=== PATIENT | female | born 1965 | race Caucasian/White ===

== ENCOUNTER → 2016-06-05 | Outpatient (CLI) | payer BC, OTHER ==
[~2016-06-05] MED LIST: B-COTAB53 PO; MULTTAB58 PO; PARO1TAB27 PO
--- NOTE | 2016-06-06 08:32 | DIAGNOSTIC IMAGING REPORT ---
MRI OF THE LUMBAR SPINE WITHOUT IV CONTRAST CLINICAL HISTORY: Left lower extremity lumbar radiculopathy. COMPARISON STUDY: Abdominal CT dated 02/25/2007. TECHNIQUE: MRI of the lumbar spine is performed utilizing various T1 and T2-weighted sequences in the axial and sagittal planes. IV contrast was not administered for this examination. The examination is degraded by spinal scoliosis. FINDINGS: Lumbar spine: Vertebral body height and alignment are maintained throughout the lumbar spine. There is moderate lumbar levoscoliosis centered at L3. No destructive bony lesion is identified. Hemangiomas are incidentally noted in the bodies of L2 and L4. The transverse and spinous processes appear intact. There is no evidence of spondylolysis. Degenerative endplate edema is noted at L1-L2 and L2-L3. Intervertebral discs: There is degenerative disc desiccation throughout the lumbar spine. There is mild loss of height at L1-L2 through L3-L4. Spinal cord: The visualized spinal cord is normal in morphology and signal intensity. The conus medullaris terminates at the level of L1. The nerve roots of the cauda equina are normal in morphology. L1-L2: There is a small posterior disc bulge eccentric to the right. This causes minimal right-sided subarticular stenosis. The central canal and neural foramina are widely patent. L2-L3: There is a broad-based posterior disc bulge with annular fissure. There is no significant acquired compromise of the central canal. There is mild bilateral subarticular stenosis, left greater than right. The disc bulge may abut the exiting left L2 nerve root. There are small facet joint effusions. L3-L4: There is minimal posterior disc bulge with annular fissure eccentric to the left. There is no significant acquired compromise of the central canal at this level. There is mild bilateral subarticular stenosis, left greater than right. This may abut the exiting left L3 nerve root. Facet arthropathy is of no consequence. The neural foramina are widely patent. A right-sided facet joint effusion is noted. L4-L5: There is a small disc bulge eccentric to left. This causes left-sided subarticular stenosis, and this may abut the exiting left L4 nerve root. The central canal and neural foramina are clear. Facet arthropathy is of no consequence. A right-sided facet joint effusion is noted. L5-S1: The central canal is widely patent. Facet arthropathy causes minimal left-sided neural foraminal stenosis. Facet joint effusions are observed. Sacrum: Visualized sacrum is normal in morphology and signal intensity. Soft tissues: There is mild fatty atrophy of the paraspinous musculature. The retroperitoneal structures are grossly normal but not well assessed. IMPRESSION: 1. There is no disc herniation or significant acquired compromise of the central canal. 2. Degenerative disc disease as above. See discussion for detailed level by level analysis. 3. No destructive bony lesion is seen. 4. There is moderate lumbar levocurvature. Dictated: 06/05/2016 3:17 PM Transcribed: 06/05/2016 3:31 PM [facility] Electronically signed by: Miguel A Schwartz M.D. 06/05/2016 3:36 PM Dictated Date/Time: 06/05/2016 3:17 PM
== END | disposition home or self-care (01) ==
LOC: C.MRI 12:08
PROVIDERS: ATTEND Physical Medicine & Rehabilitation
DX: M51.16 Intervertebral disc disorders with radiculopathy, lumbar region (principal)

== ENCOUNTER → 2016-07-25 | Day surgery (SDC) | payer BC, OTHER ==
[2016-06-28 11:03] VITALS: Ht 165.1 cm; Wt 63.6 kg
[~2016-07-25] VITALS: Ht 165.1 cm; Wt 63.6 kg
[~2016-07-25] MED LIST changes: +LIDOCAINE HCL 1% 20 ML VIAL ONE
--- NOTE | 2016-07-25 14:40 | History & Physical Bridge - [place] ---
H&P Re-Evaluation Bridge Note: I have examined the patient, reviewed the History & Physical and in the interval since the performance of the History & Physical I have noted the following changes of clinical significance: No changes noted
[2016-07-25] MEDS: BUPIVACAINE 0.25% 30 ML VIAL INJ ONE (14:59)
[2016-07-25 15:12] VITALS: TEMP 36.4
--- NOTE | 2016-07-25 15:19 | Discharge Instructions ---
Discharge Instructions Date of Service Jul 25, 2016. Visit Reason for Visit: Low Back Pain Discharge Discharge Diagnosis / Problem: low back pain Discharge Goals Goal(s): Decrease discomfort, Improve function Activity Recommendations Activity Limitations: resume your previous activity Anesthesia . Post Anesthesia Instructions: If you have had General Anesthesia or IV Sedation: * Do not drive today. * Resume driving when surgeon permits. * Do not make important decisions or sign legal documents today. * Call surgeon for: 1. Temperature elevations greater than 101 degrees F. 2. Uncontrollable pain. 3. Excessive bleeding. 4. Persistent nausea and vomiting. 5. Medication intolerance (nausea, vomiting or rash). * For nausea and vomiting use only clear liquids such as: tea, soda, bouillon until nausea subsides, then gradually increase diet as tolerated. * If you have any concerns or questions, call your surgeon's office. If physician is unavailable and it is an emergency, call 911 or go to the nearest emergency room. . Diet Recommendations Recommended Home Diet: no limitations Procedures Procedures Performed: BILATERAL L4-5, L5-S1 MEDIAL BRANCH BLOCKS Pending Studies Studies pending at discharge: no Medical Emergencies . Who to Call and When: Medical Emergencies: If at any time you feel your situation is an emergency, please call 911 immediately. . Non-Emergent Contact Non-Emergency issues call your: Specialist . . "Provider Documentation" section prepared by Jeff Rutherford. .
[2016-07-25 15:21] VITALS: BP 119/87; PULSE 75; O2SAT 99
--- NOTE | 2016-07-25 16:29 | OPERATIVE REPORT ---
DATE OF OPERATION: 07/25/2016 PREOPERATIVE DIAGNOSIS: Lumbar facet arthropathy, chronic low back pain. POSTOPERATIVE DIAGNOSIS: Same. PROCEDURE: Bilateral L4-L5, L5-S1 medial branch blocks. INDICATIONS: The patient is a 51-year-old white female who has difficulty with low back pain. Imaging reveals increased facet joint signals predominantly on the right side bilaterally at L4-L5 and L5-S1. She presents today to determine how much of the facet issues are causing her low back pain by doing a diagnostic medial branch block. PHYSICAL EXAMINATION: Pleasant female seated comfortably. She has a significant scoliotic curve, there is no focal weakness of the lower extremities, intact sensation distally and negative seated straight leg raise. CONSENT: Verbal and written consent was obtained from the patient. Risks and benefits were reviewed. Risks include but are not limited to abscess and allergic reaction. The patient wishes to proceed. DESCRIPTION OF PROCEDURE: The patient was taken back to the special procedures room of [facility]. She was maintained in a prone position. Backside was cleansed with Betadine x3. Dry sterile dressing was applied. Fluoroscope was used to identify the left L4 transverse process junction, left L5 transverse process junction and the left sacral ala. Overlying skin was anesthetized with 1.5 mL of lidocaine 1% with a 25 gauge 1.5-inch needle at each site. A 25 gauge 3.5 inch spinal needle was then placed contacting bony target at each site, then anesthetized with 1 mL of bupivacaine 0.25%. The right side was then fluoroscopically identified, specifically the right L4 transverse process junction, right L5 transverse process junction and the right sacral ala. Overlying skin was anesthetized again with 1.5 mL of lidocaine 1% with a 25 gauge 1.5-inch needle. A 25 gauge 3.5 inch spinal needle then was placed targeting each site and then was injected with 1 mL of bupivacaine 0.25% at L4, L5 and the sacral ala. She tolerated the procedure well. DISPOSITION: 1. The patient is taken out into the discharge recovery area where she will be discharged home once discharge criteria have been met. 2. Follow up in the [facility] Medicine office in 2-4 weeks. I attest to the content of the Intraoperative Record and any orders documented therein. Any exceptio ns are noted below.
== END | disposition home or self-care (01) ==
LOC: X.SURG 13:38
PROVIDERS: ATTEND Physical Medicine & Rehabilitation
DX: M46.96 Unspecified inflammatory spondylopathy, lumbar region (principal); G89.29 Other chronic pain; M54.5 Low back pain

== ENCOUNTER → 2016-09-04 | Day surgery (SDC) | payer BC, OTHER ==
[2016-08-30 10:10] VITALS: Ht 165.1 cm; Wt 63.6 kg
[~2016-09-04] VITALS: Ht 165.1 cm; Wt 63.6 kg
[~2016-09-04] MED LIST changes: +IOPAMIDOL INJ 61% 15 ML VIAL ONE; -LIDOCAINE HCL 1% 20 ML VIAL ONE; +LIDOCAINE HCL 1% MPF 5 ML VIAL ONE; +SODIUM CHLORIDE 0.9% INJ 10 ML VIAL ONE
--- NOTE | 2016-09-04 14:47 | Discharge Instructions ---
Discharge Instructions Date of Service September 04, 2016. Visit Reason for Visit: Lumbar Radiculopathy Discharge Discharge Diagnosis / Problem: left leg pain Discharge Goals Goal(s): Decrease discomfort, Improve function Activity Recommendations Activity Limitations: resume your previous activity Anesthesia . Post Anesthesia Instructions: If you have had General Anesthesia or IV Sedation: * Do not drive today. * Resume driving when surgeon permits. * Do not make important decisions or sign legal documents today. * Call surgeon for: 1. Temperature elevations greater than 101 degrees F. 2. Uncontrollable pain. 3. Excessive bleeding. 4. Persistent nausea and vomiting. 5. Medication intolerance (nausea, vomiting or rash). * For nausea and vomiting use only clear liquids such as: tea, soda, bouillon until nausea subsides, then gradually increase diet as tolerated. * If you have any concerns or questions, call your surgeon's office. If physician is unavailable and it is an emergency, call 911 or go to the nearest emergency room. . Diet Recommendations Recommended Home Diet: resume previous diet Procedures Procedures Performed: Lumbar Epidural Steroid Injection Pending Studies Studies pending at discharge: no Medical Emergencies . Who to Call and When: Medical Emergencies: If at any time you feel your situation is an emergency, please call 911 immediately. . Non-Emergent Contact Non-Emergency issues call your: Specialist . . "Provider Documentation" section prepared by Jeff Rutherford. .
[2016-09-04 14:50] VITALS: BP 125/87; PULSE 78; O2SAT 100
--- NOTE | 2016-09-04 15:12 | OPERATIVE REPORT ---
DATE OF OPERATION: 09/04/2016 PREOPERATIVE DIAGNOSIS: L5-S1 foraminal stenosis with left lower extremity radiculopathy. POSTOPERATIVE DIAGNOSIS: Same. PROCEDURE: Left paramedian L5-S1 intralaminar epidural steroid injection under fluoroscopic guidance. SURGEON: Dr. Jeff Rutherford. INDICATIONS: The patient is a 51-year-old white female who did not receive substantial relief from medial branch blocks, her pain is felt to be more radicular in nature and she presents today for an epidural injection. Imaging shows foraminal stenosis on the left side at L4-L5 causing problems with an L5 radiculopathy. PHYSICAL EXAMINATION: GENERAL: Pleasant female seated comfortably. MUSCULOSKELETAL: Lumbar paraspinal muscles were nontender. She had normal motor and sensory examination of the lower extremities. Negative seated straight leg raises. CONSENT: Verbal and written consent was obtained from the patient. Risks and benefits were reviewed. Risks include but are not limited to epidural abscess, epidural hematoma, allergic reaction, dural puncture. The patient wishes to proceed. PROCEDURE: The patient was taken back to the special procedures room of [facility]. She was maintained in a prone position. Backside was cleansed with Betadine x3 and a dry sterile dressing was applied. Fluoroscope was used to identify the L5-S1 intralaminar space. Overlying skin on the left side was anesthetized with 4 mL of lidocaine 1% with a 25 gauge 1.5-inch needle with lidocaine 1% 4 mL. Then a 22 gauge 3-1/2 inch Tuohy needle was placed down towards the intralaminar space. It was advanced under lateral fluoroscopic guidance and loss of resistance was noted at a depth of 6 cm. Isovue-300 contrast 1 mL was injected in which demonstrated epidural uptake pattern which was confirmed with both AP and lateral views. She then underwent injection after negative aspiration of 40 mg of Depo-Medrol and 4 mL of preservative free sodium chloride. Injection was well tolerated and reproduced a familiar transient radicular sensation down the leg. DISPOSITION: 1. The patient is taken out into the discharge recovery area where she will be discharged home once discharge criteria have been met. 2. Follow up in the [facility] Sports Medicine office in 2-4 weeks. I attest to the content of the Intraoperative Record and any orders documented therein. Any exceptio ns are noted below.
== END | disposition home or self-care (01) ==
LOC: X.SURG 13:16
PROVIDERS: ATTEND Physical Medicine & Rehabilitation
DX: M48.07 Spinal stenosis, lumbosacral region (principal); M54.16 Radiculopathy, lumbar region

== ENCOUNTER → 2016-10-19 | Outpatient (CLI) | payer BC, OTHER ==
[~2016-10-19] MED LIST changes: -IOPAMIDOL INJ 61% 15 ML VIAL ONE; -LIDOCAINE HCL 1% MPF 5 ML VIAL ONE; -SODIUM CHLORIDE 0.9% INJ 10 ML VIAL ONE
--- NOTE | 2016-10-19 11:34 | DIAGNOSTIC IMAGING REPORT ---
CERVICAL WITHOUT CONTRAST CLINICAL HISTORY: 51-year-old female with history of scoliosis, concern for Chiari malformation, neck and lower back pain with left leg numbness for 1 1/2 years. TECHNIQUE: Multiplanar, multisequence MRI of the cervical spine was performed without the use of contrast. IV contrast: None. COMPARISON: None. FINDINGS: Normal cervical lordosis. Vertebral body heights, bone marrow signal intensity, and alignment maintained. Mild intervertebral disc desiccation in the upper cervical region, where there are small disc osteophyte complexes at C3-4 and C4-5. These do not result in significant effacement of the thecal sac. Asymmetric left mild facet arthropathy in the mid cervical spine. C2-3: Normal. C3-4: Uncovertebral hypertrophy/disc osteophyte complex results in mild bilateral neural foraminal narrowing. C4-5: Left facet arthropathy and uncovertebral hypertrophy/disc osteophyte complex result in mild left neural foraminal narrowing. C5-6: Normal. C6-7: Normal. C7-T1: Normal. Spinal cord maintains normal morphology and signal intensity. Normal craniocervical junction. Paraspinal soft tissues within normal limits. IMPRESSION: 1. Mild degenerative changes at C3-4 and C4-5 with mild neural foraminal narrowing as detailed above. No spinal canal stenosis. 2. No evidence of Chiari malformation. Electronically signed by: Trent Huerta M.D. 10/19/2016 11:32 AM Dictated Date/Time: 10/19/2016 11:22 AM
--- NOTE | 2016-10-19 12:34 | DIAGNOSTIC IMAGING REPORT ---
THORACIC SPINE WITHOUT CLINICAL HISTORY: 51 years-old Female presenting with SCOLIOSIS, rule out Chiari malformation, neck and lower back pain with left leg numbness for one and a half years. TECHNIQUE: Multisequence, multiplanar MR imaging of the thoracic spine was performed without the use of intravenous contrast. IV contrast: None. COMPARISON: Correlation made to CT of the thorax from 01/25/2010. FINDINGS: Thoracic vertebral bodies maintain normal height and bone marrow signal intensity. Scoliotic curvature of the thoracolumbar spine. Otherwise alignment is preserved. No acute osseous injury or subluxation. No significant degenerative change. No spinal canal or neural foraminal narrowing. Thoracic spinal cord maintains normal signal intensity and morphology. The spinal cord ends in good position at L1. No evidence of a syrinx. Paraspinal soft tissues normal. IMPRESSION: 1. Scoliotic curvature of the thoracic spine. No other significant abnormality. Electronically signed by: Trent Huerta M.D. 10/19/2016 12:33 PM Dictated Date/Time: 10/19/2016 12:28 PM
== END | disposition home or self-care (01) ==
LOC: C.MRI 09:33
PROVIDERS: ATTEND Neurological Surgery
DX: M41.129 Adolescent idiopathic scoliosis, site unspecified (principal)

== ENCOUNTER → 2016-12-19 | Day surgery (SDC) | payer BC, OTHER ==
[2016-11-15 10:19] VITALS: Ht 165.1 cm; Wt 63.6 kg
[~2016-12-19] VITALS: Ht 165.1 cm; Wt 63.6 kg
[~2016-12-19] MED LIST changes: +IOPAMIDOL INJ 61% 15 ML VIAL ONE; +LIDOCAINE HCL 1% MPF 5 ML VIAL ONE; +SODIUM CHLORIDE 0.9% INJ 10 ML VIAL ONE
[2016-12-19 14:23] VITALS: TEMP 36.6
[2016-12-19 15:15] VITALS: BP 118/68; PULSE 77; O2SAT 98
--- NOTE | 2016-12-19 15:19 | Discharge Instructions ---
Discharge Instructions Date of Service Dec 19, 2016. Visit Reason for Visit: Lumbar Radiculopathy Discharge Discharge Diagnosis / Problem: left leg pain Discharge Goals Goal(s): Decrease discomfort, Improve function Activity Recommendations Activity Limitations: resume your previous activity Anesthesia . Post Anesthesia Instructions: If you have had General Anesthesia or IV Sedation: * Do not drive today. * Resume driving when surgeon permits. * Do not make important decisions or sign legal documents today. * Call surgeon for: 1. Temperature elevations greater than 101 degrees F. 2. Uncontrollable pain. 3. Excessive bleeding. 4. Persistent nausea and vomiting. 5. Medication intolerance (nausea, vomiting or rash). * For nausea and vomiting use only clear liquids such as: tea, soda, bouillon until nausea subsides, then gradually increase diet as tolerated. * If you have any concerns or questions, call your surgeon's office. If physician is unavailable and it is an emergency, call 911 or go to the nearest emergency room. . Diet Recommendations Recommended Home Diet: resume previous diet Procedures Procedures Performed: Lumbar Epidural Steroid Injection Pending Studies Studies pending at discharge: no Medical Emergencies . Who to Call and When: Medical Emergencies: If at any time you feel your situation is an emergency, please call 911 immediately. . Non-Emergent Contact Non-Emergency issues call your: Specialist . . "Provider Documentation" section prepared by Jeff Rutherford. .
--- NOTE | 2016-12-19 15:38 | OPERATIVE REPORT ---
DATE OF OPERATION: 12/19/2016 PREOPERATIVE DIAGNOSIS: Lumbar synovial cyst, L5-S1 with a left S1 radiculopathy. POSTOPERATIVE DIAGNOSIS: Same. PROCEDURE: Left paramedian L5-S1 intralaminar epidural steroid injection under fluoroscopic guidance. INDICATIONS: The patient is a 51-year-old white female, who presents today for an epidural injection. She has had some relief with the epidurals in the past that helped with her radicular pain. Although, the relief has been transient, but it did last for a number of weeks to months. She presents today as the pain has escalated and she is planning on surgery, but wanted to address and get the pain under a little better control prior to any potential surgery that may occur in the coming months. PHYSICAL EXAMINATION: Pleasant female seated comfortably in no apparent distress. She has point tenderness to palpation of the facet area, worse with extension. She has normal lower extremity strength. Negative seated straight leg raises. CONSENT: Written and verbal consent were obtained from the patient. Risks and benefits were reviewed. Risks include, but are not limited to epidural abscess, epidural hematoma, allergic reaction, and dural puncture. The patient wishes to proceed. DESCRIPTION OF PROCEDURE: The patient was taken back to the special procedures room of [facility]. She was maintained in a prone position. Backside was cleansed with Betadine x3 and a dry sterile dressing was applied. Fluoroscope was used to identify the L5-S1 intralaminar space. Overlying skin on the left side was anesthetized with 4 mL of lidocaine 1% with a 25-gauge 1-1/2 inch needle. A 22-gauge 3-1/2 inch Tuohy needle was then directed down towards the intralaminar space. It was advanced under lateral fluoroscopic guidance. Loss of resistance was noted at a depth of 8 cm. Isovue-300 contrast 1 mL was injected in, which demonstrated epidural uptake pattern which was confirmed with both AP and lateral views. She then underwent injection after negative aspiration of 40 mg of Depo-Medrol and 4 mL of preservative free sodium chloride. Injection was well tolerated and reproduced transient radicular sensation down the left leg. DISPOSITION: 1. The patient was taken out into the discharge recovery area, where she will be discharged home once discharge criteria have been met. 2. Follow up in the [facility] office in 2-4 weeks. I attest to the content of the Intraoperative Record and any orders documented therein. Any exception s are noted below.
== END | disposition home or self-care (01) ==
LOC: X.SURG 14:20
PROVIDERS: ATTEND Physical Medicine & Rehabilitation
DX: M48.06 Spinal stenosis, lumbar region (principal); M54.16 Radiculopathy, lumbar region; M41.9 Scoliosis, unspecified; M71.38 Other bursal cyst, other site

== ENCOUNTER 2020-10-13 11:33 | Inpatient (IN) ==
--- NOTE | 2020-10-13 12:07 | Emergency Department Note ---
Impression & Plan Atypical chest pain, Abnormal ECG ED Provider Note NAME: GILA LANCASTER AGE: 55 SEX: F : 1965 ARRIVES VIA: Ambulance INFORMANT: patient, ED PROVIDER(S): Arsen Ledesma MD Chief Complaint: Chest pain HPI: Patient does present with concern for chest pain. The patient does describe it as left-sided and pressure-like. The patient states it is improved compared to prior. The patient did receive aspirin in route. The patient states her pain began around 930 this morning. Patient did have radiation to the arm neck and jaw. The patient was not exerting herself at the time and is unable to state whether or not it was exertional in nature. The patient is a family history of heart attack in her brother prior to the age of 60. The patient denies any heart or lung history. The patient is a non-smoker. Patient does feel some associated palpitations. Patient states that her symptoms have improved since then with only 1 out of 10 achiness in the left chest. Patient was recently seen for similar symptoms and did have a negative CTA of the chest per the patient. Patient denies any lower extremity swelling cough fever chills. ROS: See HPI for pertinent positives and negatives. A total of 10 systems were reviewed and otherwise negative. Past medical history: See below Surgical history: See below Social history: See below Physical Exam: GENERAL: Well appearing, well nourished, NAD, non-toxic. EYE EXAM: Normal conjunctiva. PERRL, no anisocoria and EOM's grossly intact w/o pain. NECK: Supple, no nuchal rigidity, no adenopathy, non-tender. No signs of meningismus. LUNGS: Clear to auscultation. Normal chest wall mechanics. HEART: NSR, no MRG. ABDOMEN: Abdomen soft, non-tender, normo-active bowel sounds, no masses, no rebound or guarding. BACK: No CVA TTP. SKIN: No rashes and no bruising. UPPER EXTREMITIES: Upper extremities are grossly normal. LOWER EXTREMITIES: Grossly normal, no edema. Negative Homans' sign bilaterally. NEURO EXAM: A&O x3, cranial nerves II-XII grossly intact, normal speech, moves all 4 extremities on command w/o issue. Differential diagnoses: Cardiac ischemia, aortic dissection, pulmonary embolism, pneumothorax, pneumonia, pericarditis, myocarditis, esophageal rupture, GERD, cholecystitis, pancreatitis, musculoskeletal, as well as other pathologies. Course: Patient was seen and evaluated the bedside. Full history physical exam was performed. EKG interpreted by me Sinus tachycardia, rate 103, normal intervals, normal axis, T WI in V3 and V4 with T wave flattening in the lateral leads. Flattening in T WI V4 appear change from previous EKG October 06, 2020. Imaging Studies: See below Cardiac monitoring: An order was placed for continuous cardiac monitoring. The monitor shows a rate of 95 with sinus rhythm. MDM: Patient was seen due to concern for chest pain. Blood work was obtained. Patient does have slight EKG changes. The patient only had 1 out of 10 chest pain at the time of her initial history and physical exam. Patient has a normal white count H&H and platelet count. Kidney function is unremarkable. Troponin not set up. After further discussion I did speak with the on-call police academy instructor who was unable to schedule a stress test this afternoon from the emergency department. Given this and the patient's atypical chest pain that I believe with a moderate risk heart score I did speak with Laura menard PA-C and the patient was admitted by Dr. Causey. The patient did receive nitro. Past Med/Surg History Medical History Anxiety Chronic back pain GERD (gastroesophageal reflux disease) MEDS PRN Migraine hx Mitral valve prolapse NO ECHO FOR AT LEAST TEN YRS. NO MURMUR ON EXAM AT PAT. Nausea and vomiting after administration of anesthetic agent just nausea Osteoarthritis Pap smear abnormality of cervix Right hip pain Surgical History H/O colposcopy with cervical biopsy History of appendectomy History of back surgery LUMBAR- DRILLED OUT NERVES UNSURE OF LEVELS History of breast biopsy years ago History of colonoscopy History of endometrial ablation 03/19/2019-D&C Hysteroscopy w/endo ablation History of esophagogastroduodenoscopy (EGD) History of tooth extraction Hx of elbow surgery right Family History Mother Arthritis Father Hypertension Grandmother (Maternal) Breast cancer Stroke Heart disease Grandmother (Paternal) Breast cancer Hypertension Grandfather (Maternal) Stroke Ulcerative colitis Hypertension Aunt Aneurysm Denies family history of Ovarian cancer Colorectal cancer Social History Smoking Status: Never smoker Second Hand Exposure: No; Hx Alcohol Use: Yes Alcohol type: beer, wine and hard liquor Hx Substance Use: No Preferred Language: German Communication Ability: Effective 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 Beliefs That Will Affect Care: None Current Living Situation: Spouse Other Information That Helps Us Care for You: No Feels Safe at Home: Yes Safety Concerns: Feels Safe At This Time Assistive Devices: None Allergies Allergies Allergy/AdvReac Type Severity Reaction Status Date / Time Sulfa (Sulfonamide Allergy Intermediate nausea, Verified 10/13/20 14:08 Antibiotics) lethargy Nitrofuran Analogues Allergy Mild nausea, Verified 10/13/20 14:08 vomiting, neuro complications Home Meds Home Medications Medication Instructions Recorded Confirmed B Complex Plus Vitamin C 1 cap PO HS 12/29/18 10/13/20 magnesium 30 mg PO HS 12/29/18 10/13/20 multivitamin 1 tab PO HS 12/29/18 10/13/20 paroxetine HCl [Paxil] 20 mg PO PM 12/29/18 10/13/20 meclizine 12.5 mg PO UD PRN 10/06/20 10/13/20 omeprazole 40 mg PO BID PRN 10/06/20 10/13/20 ondansetron HCl 4 mg PO Q6 PRN 10/06/20 10/13/20 Results & Data (ED) Vital Signs Vital Signs - 24 hr 10/13/20 11:37 10/13/20 11:38 10/13/20 12:00 Temperature 37.1 C Temperature Source Oral Pulse Rate 99 H 98 H 89 Pulse Rate from SpO2 Sensor 99 H 91 H Pulse Rhythm Regular Pulse Strength Normal Respiratory Rate 22 20 16 Respiratory Effort / Characteristics Non-Labored Spontaneous Respiratory Depth Normal Respiratory Pattern Regular Blood Pressure 133/82 133/82 126/93 Blood Pressure Mean 99 99 104 Blood Pressure Position Sitting Pulse Oximetry 99 99 97 Oxygen Delivery Method Room Air Room Air Sepsis Recent Fever Within 48 Hours No Sepsis New/Unexplained Change in Mental Status No Sepsis Action Taken by Nursing No Action Required 10/13/20 13:03 10/13/20 13:10 10/13/20 13:20 Temperature Temperature Source Pulse Rate 82 85 89 Pulse Rate from SpO2 Sensor 82 86 89 Pulse Rhythm Pulse Strength Respiratory Rate 17 15 15 Respiratory Effort / Characteristics Respiratory Depth Respiratory Pattern Blood Pressure Blood Pressure Mean Blood Pressure Position Pulse Oximetry 98 98 98 Oxygen Delivery Method Sepsis Recent Fever Within 48 Hours Sepsis New/Unexplained Change in Mental Status Sepsis Action Taken by Nursing 10/13/20 13:30 10/13/20 13:40 10/13/20 13:50 Temperature Temperature Source Pulse Rate 81 88 92 H Pulse Rate from SpO2 Sensor 82 88 92 H Pulse Rhythm Pulse Strength Respiratory Rate 12 15 16 Respiratory Effort / Characteristics Respiratory Depth Respiratory Pattern Blood Pressure Blood Pressure Mean Blood Pressure Position Pulse Oximetry 98 98 99 Oxygen Delivery Method Sepsis Recent Fever Within 48 Hours Sepsis New/Unexplained Change in Mental Status Sepsis Action Taken by Nursing 10/13/20 14:00 10/13/20 14:10 10/13/20 14:20 Temperature Temperature Source Pulse Rate 89 83 85 Pulse Rate from SpO2 Sensor 94 H 83 86 Pulse Rhythm Pulse Strength Respiratory Rate 15 16 18 Respiratory Effort / Characteristics Respiratory Depth Respiratory Pattern Blood Pressure Blood Pressure Mean Blood Pressure Position Pulse Oximetry 99 99 97 Oxygen Delivery Method Sepsis Recent Fever Within 48 Hours Sepsis New/Unexplained Change in Mental Status Sepsis Action Taken by Nursing 10/13/20 14:30 Temperature Temperature Source Pulse Rate 105 H Pulse Rate from SpO2 Sensor 106 H Pulse Rhythm Pulse Strength Respiratory Rate 23 Respiratory Effort / Characteristics Respiratory Depth Respiratory Pattern Blood Pressure Blood Pressure Mean Blood Pressure Position Pulse Oximetry 99 Oxygen Delivery Method Sepsis Recent Fever Within 48 Hours Sepsis New/Unexplained Change in Mental Status Sepsis Action Taken by [facility] Medications Current Medication List: was personally reviewed by me Laboratory Data Attestation: I reviewed the patient's lab results. Result diagrams: 10/13/20 Unknown 10/13/20 Unknown Lab Results 10/13/20 10/13/20 10/13/20 Range/Units 12:45 14:23 14:23 APTT 21.9 (21.0-31.0) Seconds PTT Ratio 0.8 COVID-19 Eval Order Covid19 at [facility] SARS-CoV-2 (PCR) NEGATIVE (Negative) Administered Medications Discontinued Medications Acetaminophen (Acetaminophen 500 Mg Tab) 1,000 mg PO NOW STA Stop: 10/13/20 14:25 Last Admin: 10/13/20 14:30 Dose: 1,000 mg Documented by: [id number] Sodium Chloride (Nss) 500 mls @ 999 mls/hr IV .Q31M STA Stop: 10/13/20 12:46 Last Infusion: 10/13/20 13:10 Dose: 0 mls/hr Documented by: [id number] Admin: 10/13/20 12:31 Dose: 999 mls/hr Documented by: [id number] Nitroglycerin (Nitroglycerin 2% Ointment 30gm Tube) 0.5 inch EXT NOW STA Stop: 10/13/20 14:09 Last Admin: 10/13/20 14:27 Dose: 0.5 inch Documented by: [id number] Imaging Data Radiologist's Impression: Chest X-Ray 10/13/20 12:16 XR chest 1V portable HISTORY: 55 years-old Female Chest Pain acute atypical chest pain COMPARISON: Chest radiograph and CTA chest 10/06/2020 TECHNIQUE: AP view of the chest FINDINGS: Cardiac mediastinal and hilar silhouettes are within normal limits. No pneumothorax, pleural effusion, airspace consolidation or overt pulmonary edema. Lumbar levoscoliosis. Bones appear grossly intact. IMPRESSION: No acute process. ACT 112: Negative or not required by law. The above report was generated using voice recognition software. It may contain grammatical, syntax or spelling errors. Electronically signed by: Eren Alonzo M.D. 10/13/2020 12:57 PM Discharge Plan Visit Data Chief Complaint: Chest Pain Stated Complaint: CHEST PAIN, SOB ED Provider: Arsen Ledesma Discharge Problem: Atypical chest pain, Abnormal ECG Patient Disposition: Admitted As Inpatient Discharge Instructions Interventions: ED Discharge Assessment Last Done: 10/13/20 16:53
[2020-10-13] MEDS ORDERED: SODIUM CHLORIDE 0.9% 500 ML IV STA (12:16)
[2020-10-13 12:49] LABS: Basophils # (auto) 0.01 K/uL (0-0.2); Basophils % (auto) 0.2 %; Eosinophils % (auto) 1.6 %; Hematocrit (blood only) 39.5 % (37-47); Hemoglobin 13.3 g/dL (12.0-16.0); Immature Granulocytes # (auto) 0.01 K/uL (0.00-0.02); Immature Granulocytes % (auto) 0.2 %; Lymphocytes % (auto) 21.3 %; Mean Corpuscular Hemoglobin 31.4 pg (25-34); Mean Corpuscular Hgb Conc 33.7 g/dL (32-36); Mean Corpuscular Volume 93.2 fL (80-100); Mean Platelet Volume 10.3 fL (7.4-10.4); Monocytes # (auto) 0.46 K/uL (0.11-0.59); Monocytes % (auto) 7.5 %; Neutrophils # (auto) 4.22 K/uL (1.4-6.5); Neutrophils % (auto) 69.2 %; Platelet Count 242 K/uL (130-400); RDW Coefficient of Variation 13.4 % (11.5-14.5); RDW Standard Deviation 45.8 fL (36.4-46.3); Red Blood Count 4.24 M/uL (4.2-5.4)
--- NOTE | 2020-10-13 12:59 | XRay Report ---
XR chest 1V portable HISTORY: 55 years-old Female Chest Pain acute atypical chest pain COMPARISON: Chest radiograph and CTA chest 10/06/2020 TECHNIQUE: AP view of the chest FINDINGS: Cardiac mediastinal and hilar silhouettes are within normal limits. No pneumothorax, pleural effusion , airspace consolidation or overt pulmonary edema. Lumbar levoscoliosis. Bones appear grossly intact. IMPRESSION: No acute process. ACT 112: Negative or not required by law. The above report was generated using voice recognition software. It may contain grammatical, syntax o r spelling errors. Electronically signed by: Eren Alonzo M.D. 10/13/2020 12:57 PM
[2020-10-13 13:09] LABS: Alanine Aminotransferase 19 U/L (12-78); Albumin Level 3.7 gm/dl (3.4-5.0); Aspartate Aminotransferase 15 U/L (15-37); BUN Creatinine Ratio 20.4 (10-20); Blood Urea Nitrogen 13 mg/dl (7-18); Carbon Dioxide 28 mmol/L (21-32); Chloride 111 mmol/L (98-107); Creatinine Clr Calc Pharmacy 100.5 ml/min; Est GFR (African American) 118.1 ml/min; Est GFR (Non-African American) 101.9 ml/min; Glucose 96 mg/dl (70-99); Lipase 193 U/L (73-393); Potassium 3.6 mmol/L (3.5-5.1); Sodium 140 mmol/L (136-145)
[2020-10-13 13:12] LABS: Partial Thromboplastin Ratio 0.8; Partial Thromboplastin Time 21.9 Seconds (21.0-31.0)
[2020-10-13 13:14] LABS: Albumin Globulin Ratio 0.9 (0.9-2); Alkaline Phosphatase 66 U/L (45-117); Bilirubin,Total 0.3 mg/dl (0.2-1); Globulin 3.9 gm/dl (2.5-4.0); Total Protein 7.6 gm/dl (6.4-8.2); Troponin I < 0.015 ng/ml (0-0.045)
[2020-10-13] MEDS ORDERED: NITROGLYCERIN 2% OINTMENT 30GM TUBE EXT STA (14:08)
--- NOTE | 2020-10-13 14:20 | History & Physical Report ---
Date of Service October 13, 2020 Assessment & Plan (1) Frequent PVCs: (2) Palpitation: (3) Chest pain: - Admit to tele for observation for r/o - Trend cardiac biomarkers, initial set was negative, next set at 1999, check magnesium at that time - If negative enzymes can consider a stress test tomorrow morning. Will make npo after midnight in case can do stress test in the am - Consult cardiology - appreciate recs, - EKG reviewed as above showing T wave inversions in V4-V6, - Daily EKGs - Check 2 D echo - PT/OT consulted (4) Migraine: - Hx of such, controlled (5) GERD (gastroesophageal reflux disease): -Patient is not on a PPI or H2 lauren (6) Chronic back pain: -History of such uses Tylenol, ibuprofen as needed (7) Anxiety: -History of such, well maintained on Paxil 20 mg daily, continue DVt ppx: - teds, scds CODE: Full code Dispo: From home, likely to remain in the hospital x 1-2 days History of Present Illness Primary Care Provider: Jarek Madrigal DO This is a 55-year-old female with PMHx of migraine, GERD, chronic back pain, anxiety, osteoarthritis, s/p hysterectomy 08/22/2020, presents with acute onset of chest pain. Patient is here with her who supports the history. She reports that she was in the ER approximately 1 week ago with similar complaints, at that time negative troponins, no EKG changes, chest pain relieved and was sent home. Patient represents today as this morning while she was sitting at her desk working she had acute onset of chest pressure, substernal and left-sided pain which radiated down her left arm and up into the left side of her jaw. She had associated shortness of breath and diaphoresis at that time. This lasted several minutes and then subsided. She continued to have palpitations and felt dizzy throughout the morning and called her PCP who is did schedule her for an appointment tomorrow morning. Due to chest pressure waxing and waning she presented to the ER. Currently she rates her pain as a 3/10, and had Nitropaste 1/2 inch placed prior to my visit. She denies any stressful social or family events that would have prompted an anxiety attack or panic attack that may have caused her above symptoms. Social history: Patient denies any smoking history. She drinks 1 alcoholic beverage daily. Pt walks approximately 1 mile per day since having a hysterectomy surgery performed 6 weeks ago. Prior to her surgery she was walking approximately 3 miles daily for exercise. Since having the surgery for heavy irregular menses, she denies vaginal bleeding, dizziness, fatigue, shortness of breath or other complaints endorsed from blood loss. Family history: Brother-age 53, CAD s/p cardiac stents in his mid 40s Maternal grandmother - of stroke in 60s Maternal grandfather - of stroke in 60s Allergies Allergy/AdvReac Type Severity Reaction Status Date / Time Sulfa (Sulfonamide Allergy Intermediate nausea, Verified 10/13/20 14:08 Antibiotics) lethargy Nitrofuran Analogues Allergy Mild nausea, Verified 10/13/20 14:08 vomiting, neuro complications Home Medications Medication Instructions Recorded Confirmed Type B Complex Plus Vitamin C 1 cap PO HS 12/29/18 10/13/20 History magnesium 30 mg PO HS 12/29/18 10/13/20 History multivitamin 1 tab PO HS 12/29/18 10/13/20 History paroxetine HCl [Paxil] 20 mg PO PM 12/29/18 10/13/20 History meclizine 12.5 mg PO UD PRN 10/06/20 10/13/20 History omeprazole 40 mg PO BID PRN 10/06/20 10/13/20 History ondansetron HCl 4 mg PO Q6 PRN 10/06/20 10/13/20 History Past Med/Surg History Medical History Anxiety Chronic back pain GERD (gastroesophageal reflux disease) MEDS PRN Migraine hx Mitral valve prolapse NO ECHO FOR AT LEAST TEN YRS. NO MURMUR ON EXAM AT PAT. Nausea and vomiting after administration of anesthetic agent just nausea Osteoarthritis Pap smear abnormality of cervix Right hip pain Surgical History H/O colposcopy with cervical biopsy History of appendectomy History of back surgery LUMBAR- DRILLED OUT NERVES UNSURE OF LEVELS History of breast biopsy years ago History of colonoscopy History of endometrial ablation 03/19/2019-D&C Hysteroscopy w/endo ablation History of esophagogastroduodenoscopy (EGD) History of tooth extraction Hx of elbow surgery right Family History Mother Arthritis Father Hypertension Grandmother (Maternal) Breast cancer Stroke Heart disease Grandmother (Paternal) Breast cancer Hypertension Grandfather (Maternal) Stroke Ulcerative colitis Hypertension Aunt Aneurysm Denies family history of Ovarian cancer Colorectal cancer Social History Smoking Status: Never smoker Second Hand Exposure: No; Hx Alcohol Use: Yes Alcohol type: beer, wine and hard liquor Hx Substance Use: No Preferred Language: Palestinian Communication Ability: Effective Mobile Phlebotomist Required: No Beliefs That Will Affect Care: None Current Living Situation: Spouse Other Information That Helps Us Care for You: No Feels Safe at Home: Yes Safety Concerns: Feels Safe At This Time Assistive Devices: None Review of Systems Review of Systems: Constitutional: No fever, sweats or chills Eyes: No diplopia, no worsening or blurred vision ENT: normal hearing, no trouble swallowing Respiratory: No cough, sputum, dyspnea at rest or on exertion Cardiovascular: As per HPI Abdomen: No pain, nausea, vomiting, diarrhea or constipation Musculoskeletal: No joint pain, calf pain, swelling Neurologic: No weakness, numbness/tingling, or balance problems Psychiatric: No anxiety or depression Skin: No rash or itch Physical Exam Physical Exam: General: awake, alert, no apparent distress Head: Normocephalic, atraumatic ENT: PERRL, EOMI, no pharyngeal exudate, mucous membranes moist Chest: Clear to auscultation, on room air, no adventitious breath sounds Cardiac: Regular rhythm, few extra beats, tachycardic with heart rate in the mid 90s, no murmur, no JVD, normal peripheral pulses, good capillary refill Abdominal: NABS x 4 quadrants, soft, nondistended, nontender to palpation, no rebound or guarding Extremities: Normal inspection, no peripheral edema or erythema, calfs nontender to palpation Psych: Normal mood and affect Neuro: AAO x 3, strength intact bilaterally and rated 5/5, no motor deficits, speech is clear, no peripheral sensory deficits Results & Data Results & Data ([facility]) Vital Signs (Past 12 Hours) Vital Signs Temp Pulse Resp BP Pulse Ox 10/13/20 13:40 88 15 98 10/13/20 13:30 81 12 98 10/13/20 13:20 89 15 98 10/13/20 13:10 85 15 98 10/13/20 13:03 82 17 98 10/13/20 12:00 89 16 126/93 97 10/13/20 11:38 98 H 20 133/82 99 10/13/20 11:37 37.1 C 99 H 22 133/82 99 Diagnostic Findings Chest X-Ray 10/13/20 12:16 XR chest 1V portable HISTORY: 55 years-old Female Chest Pain acute atypical chest pain COMPARISON: Chest radiograph and CTA chest 10/06/2020 TECHNIQUE: AP view of the chest FINDINGS: Cardiac mediastinal and hilar silhouettes are within normal limits. No pneumothorax, pleural effusion, airspace consolidation or overt pulmonary edema. Lumbar levoscoliosis. Bones appear grossly intact. IMPRESSION: No acute process. ACT 112: Negative or not required by law. The above report was generated using voice recognition software. It may contain grammatical, syntax or spelling errors. Electronically signed by: Eren Alonzo M.D. 10/13/2020 12:57 PM ECG Additional Comments: 13-OCT-2020 11:40:55 [facility]-EDSTAT ROUTINE RETRIEVAL Sinus tachycardia Possible Left atrial enlargement Nonspecific T wave abnormality Abnormal ECG When compared with ECG of 06-OCT-2020 12:18, Premature ventricular complexes are no longer Present Nonspecific T wave abnormality now evident in Inferior leads Nonspecific T wave abnormality now evident in Lateral leads 25mm/s 10mm/mV 150Hz 9.0.9 12SL 241 DREA: 11 Unconfirmed Vent. rate 103 BPM LA interval 138 ms QRS duration 84 ms QT/QTc 318/416 ms Code Status & VTE Plan Code Status Full code-discussed with patient at bedside Supervising Physician Co-Signing Physician Notes Patient is a 55-year-old female with history of GERD, PVCs, migraine and other medical problems presents with history of gradually worsening left-sided, retrosternal chest pain associated with palpitations, dyspnea, diaphoresis, nausea, radiates to left upper extremity, left side of the jaw, with no aggravating or relieving factors since 1 week duration. Patient admits to have panic attacks many years ago but currently denies issues. She recently had hysterectomy for menorrhagia and did well postoperatively. Chest pain improved with nitroglycerin given while in ED. Please review HPI for complete details of presentation. Initial troponins are negative. Chest x-ray not contributory. EKG showed nonspecific T wave changes in inferior, lateral leads. Patient is a strong family history of coronary artery disease (brother diagnosed to have CAD in his 40s). On exam patient is moderately built and nourished, no apparent distress, normocephalic atraumatic, EOMI, PERRL, normal breath sounds, clear to auscultation, S1-S2, no murmur, no pedal edema, abdomen soft, nontender, normal bowel sounds, alert, awake, oriented, grossly no focal deficits. Patient is admitted for management of chest pain rule out ACS. Start on aspirin 81 mg daily. Check resting echo. Trend cardiac enzymes. Consult cardiology. We will keep her n.p.o. after midnight. Repeat EKG in the morning. Check lipid panel, TSH. Monitor on telemetry for PVCs. I personally reviewed the record. Patient is interviewed and examined at bedside. Patient's care is coordinated with Mary Oliva PA-C. Please refer to the documentation above for details of patient's presentation and for discussion of other issues. (1) Chest pain Chest pain type: unspecified Qualified Code(s): R07.9 - Chest pain, unspecified
[2020-10-13] MEDS ORDERED: ACETAMINOPHEN 500 MG TAB PO STA (14:24)
[2020-10-13] MEDS ORDERED: POTASSIUM CHLORIDE CRTAB 20 MEQ TABCR PO ONE (16:54)
[2020-10-13] MEDS ORDERED: ONDANSETRON INJ 2 MG/ML 2 ML VIAL IV PRN (16:54)
[2020-10-13] MEDS ORDERED: NITROGLYCERIN SL 0.4 MG/TAB TAB SL PRN (16:54)
[2020-10-13] MEDS ORDERED: PANTOprazole 40 MG TAB PO PRN (17:04)
[2020-10-13 21:01] LABS: Magnesium 2.1 mg/dl (1.8-2.4); Troponin I < 0.015 ng/ml (0-0.045)
[2020-10-13] MEDS: ACETAMINOPHEN 325 MG TAB PO PRN (21:03)
[2020-10-13] MEDS ORDERED: MoRPHine SULFATE 2 MG/ML CARP IV STA (21:21)
[2020-10-13] MEDS ORDERED: FAMOTIDINE 20 MG in SYRINGE 3 ML IV STA (21:24)
[2020-10-13] MEDS ORDERED: SODIUM CHLORIDE 0.9% 1000ML 1,000 ML IV SCH (21:45)
[2020-10-13] MEDS ORDERED: OPTIRAY 320 125ml IV ONE (22:25)
[2020-10-13] MEDS: PARoxetine HCL 20 MG TAB PO SCH (22:37)
--- NOTE | 2020-10-14 01:33 | CT Scan Report ---
CT ANGIOGRAM OF THE CHEST CLINICAL HISTORY: PE COMPARISON STUDY: October 06, 2020 TECHNIQUE: Following the IV administration of 120 mL of Optiray, CT angiogram of the thorax was perfo rmed from the thoracic inlet to the lung bases utilizing the pulmonary embolus protocol. Images are r eviewed in the axial, sagittal, and coronal planes. IV contrast was administered without complication . MIP imaging was performed. A dose lowering technique was utilized adhering to the principles of AL BRYANT. CT DOSE: 223.44 mGy.cm FINDINGS: Adequate opacification within main pulmonary artery. Interval development of intraluminal filling def ect within right lower lobe pulmonary artery branches. Main pulmonary artery is normal in caliber. No evidence of right heart strain. No pathologically enlarged axillary mediastinal or hilar lymph nodes were visualized. There was no evidence of thoracic aortic dilatation. Tracheobronchial tree is patent. No large infiltrates or consolidative lesions are seen. Mild atelectasis is seen at dependent portion s of bilateral lower lobes. There is questionable peripheral opacity at the subpleural aspect of the lateral basal segment of the right lower lobe which is supplying by pulmonary artery branches affected by clotting process and mi ght represent developing pulmonary infarct (series 4 image 55) No pleural effusions are visualized. Limited evaluation of upper abdominal viscera shows no evidence of acute abnormalities. Evaluation of osseous structures shows minimal scoliosis and no significant degenerative changes. IMPRESSION: 1. Interval development of small pulmonary embolus within right lower lobe pulmonary artery branches with questionable peripheral opacity which might represent developing pulmonary infarct. Findings we re called to emergency Department. 2. No right heart strain seen. No pulmonary artery dilatation. 3. The rest of findings as detailed above. ACT 112: Positive. There are findings on this exam that require communication between the performing entity and the patient following Patient Test Result Information Act ([place] Act 112) guidelines. The above report was generated using voice recognition software. It may contain grammatical, syntax o r spelling errors. Electronically signed by: Kristina Farris DO 10/14/2020 1:32 AM
[2020-10-14] MEDS ORDERED: Heparin IV Adult Wt-Based Standard WITH Bolus Protocol IV SCH (02:01)
[2020-10-14] MEDS ORDERED: HEPARIN SOD (PORCINE) 1000 UNIT/ML IV STA (02:30)
[2020-10-14] MEDS: HEPARIN SODIUM/DEXTROSE 25,000 UNITS/500 ML BAG IV SCH (02:51)
[2020-10-14 02:52] LABS: Partial Thromboplastin Ratio 0.8; Partial Thromboplastin Time 22.2 Seconds (21.0-31.0)
--- NOTE | 2020-10-14 06:05 | Electrocardiogram Report ---
Test Reason : Blood Pressure : / mmHG Vent. Rate : 103 BPM Atrial Rate : 103 BPM P-R Int : 138 ms QRS Dur : 084 ms QT Int : 318 ms P-R-T Axes : 065 081 031 degrees QTc Int : 416 ms Sinus tachycardia Possible Left atrial enlargement Nonspecific T wave abnormality Abnormal ECG When compared with ECG of 06-OCT-2020 12:18, Premature ventricular complexes are no longer Present Nonspecific T wave abnormality now evident in Inferior leads Nonspecific T wave abnormality now evident in Anterolateral leads Confirmed by Giuseppe Rashid ([id number]) on 10/14/2020 6:04:50 AM Referred By: Confirmed By:Giuseppe Rashid
[2020-10-14] MEDS: ASPIRIN 81 MG ECTAB PO SCH (07:45)
--- NOTE | 2020-10-14 08:45 | Hospitalist Progress Note ---
Date of Service October 14, 2020 Assessment & Plan (1) Frequent PVCs: (2) Palpitation: (3) Chest pain: Acute Right lower lobe PE -Initially admitted for chest pain with PVCs, ACS rule out -However chest pain worsened and CTA was obtained, consistent with right lower lobe PE -cardiac enzymes negative -Echo -normal LV chamber size and mild concentric LVH. Normal LV systolic function, EF 55 to 60%. No segmental LV wall motion abnormalities are noted. Grade 1 diastolic dysfunction. The right ventricular cavity size is normal. There is trace mitral regurg. -Patient started overnight on IV heparin for PE treatment -Patient had surgery, hysterectomy, about 6 to 7 weeks ago, will discuss further with gynecology (4) Migraine: - Hx of such, controlled (5) GERD (gastroesophageal reflux disease): -Patient is not on a PPI or H2 lauren (6) Chronic back pain: -History of such uses Tylenol, ibuprofen as needed (7) Anxiety: -History of such, well maintained on Paxil 20 mg daily, continue DVt ppx: - teds, scds CODE: Full code Dispo: From home, likely to remain in the hospital x 1-2 days Admission and Anticipated Discharge Date Admission Date: October 13, 2020 Subjective Patient seen in follow-up of chest pain, left-sided radiating to left neck and left arm Overnight found to have right lower lobe PE Currently on IV heparin, laying in bed, in no acute distress She is breathing comfortably on room air, denies any lower extremity edema or pain Says she feels occasionally lightheaded when she gets pain radiating to her left neck Review of Systems Review of Systems: All systems reviewed & are unremarkable except as noted in HPI & below Constitutional: no fever and no chills Respiratory: no dyspnea Cardiovascular: + chest pain (left sided) and + radiating jaw, neck or arm pain Gastrointestinal: no abdominal pain, no nausea and no vomiting Physical Exam Physical Exam: General: awake, alert, no apparent distress Head: Normocephalic, atraumatic ENT: PERRL, EOMI, no pharyngeal exudate, mucous membranes moist Chest: Clear to auscultation, on room air, no adventitious breath sounds Cardiac: Regular rhythm, no murmur, no JVD, normal peripheral pulses, good capillary refill Abdominal: NABS x 4 quadrants, soft, nondistended, nontender to palpation, no rebound or guarding Extremities: Normal inspection, no peripheral edema or erythema, calves nontender to palpation Psych: Normal mood and affect Neuro: AAO x 3, strength intact bilaterally and rated 5/5, no motor deficits, speech is clear, no peripheral sensory deficits Results & Data Results & Data ([facility]) Vital Signs (Past 12 Hours) Vital Signs Temp Pulse Pulse Resp BP Pulse Ox 10/14/20 08:03 36.8 C 80 19 114/77 96 10/14/20 07:52 83 10/14/20 03:06 37.0 C 88 18 111/75 96 10/13/20 22:52 37.3 C 78 18 100/64 97 10/13/20 21:16 87 121/73 Laboratory Results 10/14/20 10/14/20 10/14/20 Range/Units 09:14 09:14 09:14 WBC (4.8-10.8) K/uL RBC (4.2-5.4) M/uL Hgb (12.0-16.0) g/dL Hct (37-47) % MCV (80-100) fL MCH (25-34) pg MCHC (32-36) g/dL RDW Std Deviation (36.4-46.3) fL RDW Coeff of Kirk (11.5-14.5) % Plt Count (130-400) K/uL MPV (7.4-10.4) fL Immature Gran % (Auto) % Neut % (Auto) % Lymph % (Auto) % [place] % (Auto) % Eos % (Auto) % Baso % (Auto) % Neut # (Auto) (1.4-6.5) K/uL Lymph # (Auto) (1.2-3.4) K/uL [place] # (Auto) (0.11-0.59) K/uL Eos # (Auto) (0-0.5) K/uL Baso # (Auto) (0-0.2) K/uL Immature Gran # (Auto) (0.00-0.02) K/uL APTT 101.7 H* (21.0-31.0) Seconds PTT Ratio 3.9 Sodium 140 (136-145) mmol/L Potassium 3.8 (3.5-5.1) mmol/L Chloride 111 H (98-107) mmol/L Carbon Dioxide 24 (21-32) mmol/L Anion Gap 5.0 (3-11) BUN 10 (7-18) mg/dl Creatinine 0.69 (0.6-1.2) mg/dl Est Cr Clr Drug Dosing 93.2 ml/min Est GFR ( Amer) 115.2 ml/min Est GFR (Non-Af Amer) 99.4 ml/min BUN/Creatinine Ratio 14.2 (10-20) Glucose 89 (70-99) mg/dl Estimat Average Glucose Pending Hemoglobin A1c Pending Calcium 8.4 L (8.5-10.1) mg/dl Phosphorus 2.6 (2.5-4.9) mg/dl Magnesium 2.1 (1.8-2.4) mg/dl Total Bilirubin 0.3 (0.2-1) mg/dl AST 17 (15-37) U/L ALT 18 (12-78) U/L Alkaline Phosphatase 67 (45-117) U/L Troponin I < 0.015 (0-0.045) ng/ml Total Protein 6.8 (6.4-8.2) gm/dl Albumin 3.4 (3.4-5.0) gm/dl Globulin 3.4 (2.5-4.0) gm/dl Albumin/Globulin Ratio 1.0 (0.9-2) Triglycerides 51 (0-150) mg/dl Cholesterol 129 (0-200) mg/dl LDL Cholesterol, Calc 59 mg/dl VLDL Cholesterol, Calc 10 mg/dl HDL Cholesterol 60 mg/dl Cholesterol/HDL Ratio 2 Lipase (73-393) U/L TSH (0.300-4.500) uIu/ml COVID-19 Eval Order SARS-CoV-2 (PCR) (Negative) 10/14/20 10/14/20 10/13/20 Range/Units 09:14 02:31 Unknown WBC 4.86 (4.8-10.8) K/uL RBC 3.96 L (4.2-5.4) M/uL Hgb 12.3 (12.0-16.0) g/dL Hct 37.0 (37-47) % MCV 93.4 (80-100) fL MCH 31.1 (25-34) pg MCHC 33.2 (32-36) g/dL RDW Std Deviation 45.9 (36.4-46.3) fL RDW Coeff of Kirk 13.4 (11.5-14.5) % Plt Count 217 (130-400) K/uL MPV 10.1 (7.4-10.4) fL Immature Gran % (Auto) % Neut % (Auto) % Lymph % (Auto) % [place] % (Auto) % Eos % (Auto) % Baso % (Auto) % Neut # (Auto) (1.4-6.5) K/uL Lymph # (Auto) (1.2-3.4) K/uL [place] # (Auto) (0.11-0.59) K/uL Eos # (Auto) (0-0.5) K/uL Baso # (Auto) (0-0.2) K/uL Immature Gran # (Auto) (0.00-0.02) K/uL APTT 22.2 (21.0-31.0) Seconds PTT Ratio 0.8 Sodium 140 (136-145) mmol/L Potassium 3.6 (3.5-5.1) mmol/L Chloride 111 H (98-107) mmol/L Carbon Dioxide 28 (21-32) mmol/L Anion Gap 1.0 L (3-11) BUN 13 (7-18) mg/dl Creatinine 0.64 (0.6-1.2) mg/dl Est Cr Clr Drug Dosing 100.5 ml/min Est GFR ( Amer) 118.1 ml/min Est GFR (Non-Af Amer) 101.9 ml/min BUN/Creatinine Ratio 20.4 H (10-20) Glucose 96 (70-99) mg/dl Estimat Average Glucose Hemoglobin A1c Calcium 9.0 (8.5-10.1) mg/dl Phosphorus (2.5-4.9) mg/dl Magnesium (1.8-2.4) mg/dl Total Bilirubin 0.3 (0.2-1) mg/dl AST 15 (15-37) U/L ALT 19 (12-78) U/L Alkaline Phosphatase 66 (45-117) U/L Troponin I < 0.015 (0-0.045) ng/ml Total Protein 7.6 (6.4-8.2) gm/dl Albumin 3.7 (3.4-5.0) gm/dl Globulin 3.9 (2.5-4.0) gm/dl Albumin/Globulin Ratio 0.9 (0.9-2) Triglycerides (0-150) mg/dl Cholesterol (0-200) mg/dl LDL Cholesterol, Calc mg/dl VLDL Cholesterol, Calc mg/dl HDL Cholesterol mg/dl Cholesterol/HDL Ratio Lipase 193 (73-393) U/L TSH (0.300-4.500) uIu/ml COVID-19 Eval Order SARS-CoV-2 (PCR) (Negative) 10/13/20 10/13/20 10/13/20 Range/Units Unknown 20:26 14:23 WBC 6.10 (4.8-10.8) K/uL RBC 4.24 (4.2-5.4) M/uL Hgb 13.3 (12.0-16.0) g/dL Hct 39.5 (37-47) % MCV 93.2 (80-100) fL MCH 31.4 (25-34) pg MCHC 33.7 (32-36) g/dL RDW Std Deviation 45.8 (36.4-46.3) fL RDW Coeff of Kirk 13.4 (11.5-14.5) % Plt Count 242 (130-400) K/uL MPV 10.3 (7.4-10.4) fL Immature Gran % (Auto) 0.2 % Neut % (Auto) 69.2 % Lymph % (Auto) 21.3 % [place] % (Auto) 7.5 % Eos % (Auto) 1.6 % Baso % (Auto) 0.2 % Neut # (Auto) 4.22 (1.4-6.5) K/uL Lymph # (Auto) 1.30 (1.2-3.4) K/uL [place] # (Auto) 0.46 (0.11-0.59) K/uL Eos # (Auto) 0.10 (0-0.5) K/uL Baso # (Auto) 0.01 (0-0.2) K/uL Immature Gran # (Auto) 0.01 (0.00-0.02) K/uL APTT (21.0-31.0) Seconds PTT Ratio Sodium (136-145) mmol/L Potassium (3.5-5.1) mmol/L Chloride (98-107) mmol/L Carbon Dioxide (21-32) mmol/L Anion Gap (3-11) BUN (7-18) mg/dl Creatinine (0.6-1.2) mg/dl Est Cr Clr Drug Dosing ml/min Est GFR ( Amer) ml/min Est GFR (Non-Af Amer) ml/min BUN/Creatinine Ratio (10-20) Glucose (70-99) mg/dl Estimat Average Glucose Hemoglobin A1c Calcium (8.5-10.1) mg/dl Phosphorus (2.5-4.9) mg/dl Magnesium 2.1 (1.8-2.4) mg/dl Total Bilirubin (0.2-1) mg/dl AST (15-37) U/L ALT (12-78) U/L Alkaline Phosphatase (45-117) U/L Troponin I < 0.015 (0-0.045) ng/ml Total Protein (6.4-8.2) gm/dl Albumin (3.4-5.0) gm/dl Globulin (2.5-4.0) gm/dl Albumin/Globulin Ratio (0.9-2) Triglycerides (0-150) mg/dl Cholesterol (0-200) mg/dl LDL Cholesterol, Calc mg/dl VLDL Cholesterol, Calc mg/dl HDL Cholesterol mg/dl Cholesterol/HDL Ratio Lipase (73-393) U/L TSH (0.300-4.500) uIu/ml COVID-19 Eval Order SARS-CoV-2 (PCR) NEGATIVE (Negative) 10/13/20 10/13/20 10/13/20 Range/Units 14:23 12:52 12:45 WBC (4.8-10.8) K/uL RBC (4.2-5.4) M/uL Hgb (12.0-16.0) g/dL Hct (37-47) % MCV (80-100) fL MCH (25-34) pg MCHC (32-36) g/dL RDW Std Deviation (36.4-46.3) fL RDW Coeff of Kirk (11.5-14.5) % Plt Count (130-400) K/uL MPV (7.4-10.4) fL Immature Gran % (Auto) % Neut % (Auto) % Lymph % (Auto) % [place] % (Auto) % Eos % (Auto) % Baso % (Auto) % Neut # (Auto) (1.4-6.5) K/uL Lymph # (Auto) (1.2-3.4) K/uL [place] # (Auto) (0.11-0.59) K/uL Eos # (Auto) (0-0.5) K/uL Baso # (Auto) (0-0.2) K/uL Immature Gran # (Auto) (0.00-0.02) K/uL APTT 21.9 (21.0-31.0) Seconds PTT Ratio 0.8 Sodium (136-145) mmol/L Potassium (3.5-5.1) mmol/L Chloride (98-107) mmol/L Carbon Dioxide (21-32) mmol/L Anion Gap (3-11) BUN (7-18) mg/dl Creatinine (0.6-1.2) mg/dl Est Cr Clr Drug Dosing ml/min Est GFR ( Amer) ml/min Est GFR (Non-Af Amer) ml/min BUN/Creatinine Ratio (10-20) Glucose (70-99) mg/dl Estimat Average Glucose Hemoglobin A1c Calcium (8.5-10.1) mg/dl Phosphorus (2.5-4.9) mg/dl Magnesium (1.8-2.4) mg/dl Total Bilirubin (0.2-1) mg/dl AST (15-37) U/L ALT (12-78) U/L Alkaline Phosphatase (45-117) U/L Troponin I (0-0.045) ng/ml Total Protein (6.4-8.2) gm/dl Albumin (3.4-5.0) gm/dl Globulin (2.5-4.0) gm/dl Albumin/Globulin Ratio (0.9-2) Triglycerides (0-150) mg/dl Cholesterol (0-200) mg/dl LDL Cholesterol, Calc mg/dl VLDL Cholesterol, Calc mg/dl HDL Cholesterol mg/dl Cholesterol/HDL Ratio Lipase (73-393) U/L TSH 4.180 (0.300-4.500) uIu/ml COVID-19 Eval Order Covid19 at [facility] SARS-CoV-2 (PCR) (Negative) Medications Administered Current Inpatient Medications Acetaminophen (Acetaminophen 325 Mg Tab) 650 mg PO Q4H PRN PRN Reason: Moderate Pain Stop: 11/12/20 16:53 Last Admin: 10/13/20 21:03 Dose: 650 mg Documented by: Aspirin (Aspirin 81 Mg Ectab) 81 mg PO DAILY [facility] Stop: 11/13/20 08:59 Last Admin: 10/14/20 07:45 Dose: 81 mg Documented by: Heparin Sodium/Dextrose (Heparin Sodium/Dextrose) 25,000 units in 500 mls @ 0 mls/hr IV .Q0M ESHA; Protocol Stop: 11/13/20 02:29 Last Titration: 10/14/20 10:00 Dose: 0 units/hr, 0 mls/hr Documented by: Nitroglycerin (Nitroglycerin Sl 0.4 Mg/Tab Tab) 0.4 mg SL PRN PRN PRN Reason: chest pain Stop: 11/12/20 16:53 Ondansetron HCl (Ondansetron Inj 2 Mg/Ml 2 Ml Vial) 4 mg IV Q4H PRN PRN Reason: Nausea And Vomiting Stop: 11/12/20 16:53 Last Admin: 10/14/20 05:19 Dose: 4 mg Documented by: Pantoprazole Sodium (Pantoprazole 40 Mg Tab) 40 mg PO BID PRN PRN Reason: gastric upset Stop: 11/12/20 17:03 Paroxetine HCl (Paroxetine Hcl 20 Mg Tab) 20 mg PO PM ESHA Stop: 11/12/20 20:59 Last Admin: 10/13/20 22:37 Dose: 20 mg Documented by: (1) Chest pain Chest pain type: unspecified Qualified Code(s): R07.9 - Chest pain, unspecified
--- NOTE | 2020-10-14 08:48 | Hospitalist Progress Note ---
Date of Service October 14, 2020 Assessment & Plan Admission and Anticipated Discharge Date Admission Date: October 13, 2020 Subjective PAtinet having chest pains last night more with deep breath. CTA chest shows right lower lobe PE. Started on iv heparin. Patient had hystrectomy on 08/22/20. Notified MANAGER TREASURY and were ok for heparin. Thanks Results & Data Results & Data ([facility]) Vital Signs (Past 12 Hours) Vital Signs Temp Pulse Pulse Resp BP Pulse Ox 10/14/20 08:03 36.8 C 80 19 114/77 96 10/14/20 07:52 83 10/14/20 03:06 37.0 C 88 18 111/75 96 10/13/20 22:52 37.3 C 78 18 100/64 97 10/13/20 21:16 87 121/73
[2020-10-14 09:29] LABS: Hemoglobin 12.3 g/dL (12.0-16.0); Mean Corpuscular Hemoglobin 31.1 pg (25-34); Mean Corpuscular Hgb Conc 33.2 g/dL (32-36); Mean Corpuscular Volume 93.4 fL (80-100); Mean Platelet Volume 10.1 fL (7.4-10.4); Platelet Count 217 K/uL (130-400); RDW Coefficient of Variation 13.4 % (11.5-14.5); RDW Standard Deviation 45.9 fL (36.4-46.3); Red Blood Count 3.96 M/uL (4.2-5.4); White Blood Count 4.86 K/uL (4.8-10.8)
[2020-10-14 09:50] LABS: Partial Thromboplastin Ratio 3.9
[2020-10-14 09:57] LABS: Partial Thromboplastin Time 101.7 Seconds (21.0-31.0)
[2020-10-14 10:24] LABS: Alanine Aminotransferase 18 U/L (12-78); Albumin Level 3.4 gm/dl (3.4-5.0); Aspartate Aminotransferase 17 U/L (15-37); BUN Creatinine Ratio 14.2 (10-20); Bilirubin,Total 0.3 mg/dl (0.2-1); Blood Urea Nitrogen 10 mg/dl (7-18); Calcium 8.4 mg/dl (8.5-10.1); Carbon Dioxide 24 mmol/L (21-32); Chloride 111 mmol/L (98-107); Cholesterol 129 mg/dl (0-200); Creatinine Clr Calc Pharmacy 93.2 ml/min; Est GFR (African American) 115.2 ml/min; Est GFR (Non-African American) 99.4 ml/min; Globulin 3.4 gm/dl (2.5-4.0); Glucose 89 mg/dl (70-99); Magnesium 2.1 mg/dl (1.8-2.4); Potassium 3.8 mmol/L (3.5-5.1); Sodium 140 mmol/L (136-145); Total Protein 6.8 gm/dl (6.4-8.2); Troponin I < 0.015 ng/ml (0-0.045)
[2020-10-14 10:26] LABS: Alkaline Phosphatase 67 U/L (45-117); Chol HDL Ratio 2; HDL Cholesterol 60 mg/dl; LDL Cholesterol Calculated 59 mg/dl; Phosphorus 2.6 mg/dl (2.5-4.9); Triglycerides 51 mg/dl (0-150); VLDL Cholesterol 10 mg/dl
[2020-10-14 10:56] LABS: Estimated Average Glucose 108 mg/dl; Hemoglobin A1C 5.4 % (4.5-5.6)
--- NOTE | 2020-10-14 12:48 | Cardiology Consultation ---
Date of Consultation October 14, 2020 Assessment & Plan (1) Atypical chest pain: (2) Palpitation: (3) Frequent PVCs: (4) Post-operative state: (5) Anxiety: (6) Acute pulmonary embolism: Patient presents with chest pain and CTA findings of acute pulmonary emboli. No objective findings of ischemia. No RV strain by 2D echocardiogram. No further cardiac testing intervention necessary at this time. Recommend follow-up with PCP as an outpatient to determine whether stress testing may be necessary once treated for pulmonary emboli History of Present Illness Reason for Consultation: chest pain Requesting Physician: Dr. Rodriguez Attending Physician: Chivo Rodriguez MD History of Present Illness Mrs. David is a very pleasant 55-year-old woman who presented to [facility] on 10/13/2020 with complaints of chest pain. 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 She described as sharp and stabbing in nature feeling as though is radiating back through to her shoulder blade. It was associated with shortness of breath and palpitations. She became very anxious and came into the emergency department. She states that this is similar to the episode of chest over the brought in the emergency department approximately 1 week ago. Upon arrival her initial work-up was unremarkable and she was admitted to telemetry. She had a recurrent episode overnight and a CTA was performed which showed an acute pulmonary emboli. She was started on a heparin drip and states that she is now feeling much better. Allergies Allergy/AdvReac Type Severity Reaction Status Date / Time Sulfa (Sulfonamide Allergy Intermediate nausea, Verified 10/13/20 14:08 Antibiotics) lethargy Nitrofuran Analogues Allergy Mild nausea, Verified 10/13/20 14:08 vomiting, neuro complications Home Medications Medication Instructions Recorded Confirmed Type B Complex Plus Vitamin C 1 cap PO HS 12/29/18 10/13/20 History magnesium 30 mg PO HS 12/29/18 10/13/20 History multivitamin 1 tab PO HS 12/29/18 10/13/20 History paroxetine HCl [Paxil] 20 mg PO PM 12/29/18 10/13/20 History meclizine 12.5 mg PO UD PRN 10/06/20 10/13/20 History omeprazole 40 mg PO BID PRN 10/06/20 10/13/20 History ondansetron HCl 4 mg PO Q6 PRN 10/06/20 10/13/20 History Patient History Medical History Anxiety Chronic back pain GERD (gastroesophageal reflux disease) MEDS PRN Migraine hx Mitral valve prolapse NO ECHO FOR AT LEAST TEN YRS. NO MURMUR ON EXAM AT PAT. Nausea and vomiting after administration of anesthetic agent just nausea Osteoarthritis Pap smear abnormality of cervix Right hip pain Surgical History H/O colposcopy with cervical biopsy History of appendectomy History of back surgery LUMBAR- DRILLED OUT NERVES UNSURE OF LEVELS History of breast biopsy years ago History of colonoscopy History of endometrial ablation 03/19/2019-D&C Hysteroscopy w/endo ablation History of esophagogastroduodenoscopy (EGD) History of tooth extraction Hx of elbow surgery right Family History Mother Arthritis Father Hypertension Grandmother (Maternal) Breast cancer Stroke Heart disease Grandmother (Paternal) Breast cancer Hypertension Grandfather (Maternal) Stroke Ulcerative colitis Hypertension Aunt Aneurysm Denies family history of Ovarian cancer Colorectal cancer Social History Smoking Status: Never smoker Second Hand Exposure: No; Hx Alcohol Use: Yes Alcohol type: beer, wine and hard liquor Hx Substance Use: No Preferred Language: Occitan Communication Ability: Effective Acquisition Marketing Manager Required: No Beliefs That Will Affect Care: None Current Living Situation: Spouse Other Information That Helps Us Care for You: No Feels Safe at Home: Yes Safety Concerns: Feels Safe At This Time Assistive Devices: None Review of Systems Review of Systems: All systems reviewed & are unremarkable except as noted in HPI & below Physical Exam Physical Exam: Physical Exam: General: Awake, alert and oriented x 3. No acute distress. HEENT: Normocephalic, atraumatic. Pupils equal, round and reactive to light and accommodation. Extraocular muscles are intact. Anicteric sclera. Moist mucous membranes. Neck: No JVD. No bruit. Cardiovascular: Regular. No S-4. Normal S-1 and S-2. No S-3. No murmurs, rubs or gallops. Pulmonary: Clear to auscultation bilaterally. No rales, rhonchi, or wheezing. Abdomen: Bowel sounds x 4, soft. No rebound, guarding or tenderness. No organomegaly. Extremities: No clubbing, cyanosis or edema. +2 pedal pulses bilaterally. Skin: Warm and dry. Results & Data ([facility]) Vital Signs (Past 12 Hours) Vital Signs Temp Pulse Pulse Resp BP Pulse Ox 10/14/20 11:39 37.0 C 81 20 120/78 91 10/14/20 08:03 36.8 C 80 19 114/77 96 10/14/20 07:52 83 10/14/20 03:06 37.0 C 88 18 111/75 96
--- NOTE | 2020-10-14 14:06 | OB/GYN Consultation ---
Date of Consultation October 14, 2020 Assessment & Plan (1) Acute pulmonary embolism: (2) Post-operative state: From post-op standpoint, pt had a fairly uneventful recovery. Did not have much in terms of bleeding or abdominal pain related to surgery. exam was deferred as she denies vaginal bleeding or discharge and had cuff check approx 1 wk ago. It is possible that PE is secondary to hysterectomy, however the risk of VTE following non-cancer related pigment furnace tender procedure does decrease signifi cantly after 6 wks and so cannot definitively say that new dx is directly due to prior surgery. At this point, do not have any acute intervention from pigment furnace tender perspective but can always contact us if additional concerns arise. Would continue tx for PE per primary team. History of Present Illness Reason for Consultation: Pulmonary embolism, 7 wks s/p hysterectomy Requesting Physician: Dr. Rodriguez Attending Physician: Chivo Rodriguez MD History of Present Illness Barbara is a 55 y/o female who is >7 wks s/p robotic total laparoscopic hysterectomy, bilateral salpingectomy, cystoscopy on 08/22 who is admitted to the internal medicine service secondary to findings of new pulmonary embolism in the setting of acute chest pain. Was seen in the ER 1 wk ago due to L sided chest pain that radiated to her shoulder blade. Had neg CXR but elevated d-dimer and so CTA was obtained demonstrating no PE and was discharged home. Last evening, she again had the same symptoms and had abnormal EKG findings so was admitted for observation. Overnight she had worsening of L sided chest pain and CTA was obtained demonstrating R side PE and started on anticoagulation. Pt did have hysterectomy around 7 wks ago. Has not had intercourse yet, was told to wait until 10 wks at cuff check 1 wk ago. On my consult, she does note some slight RLQ abdominal pain that she reports is like the pain that she has had associated with bowel issues in the past, was an issue even before hysterectomy. Denies vaginal bleeding, discharge. Did note one time where she wiped after voiding and urine had the slightest pink tinge, however has not seen it since and it was sure it was with urine, not from vagina. Notes L sided pain is still her biggest symptom Allergies Allergy/AdvReac Type Severity Reaction Status Date / Time Sulfa (Sulfonamide Allergy Intermediate nausea, Verified 10/13/20 14:08 Antibiotics) lethargy Nitrofuran Analogues Allergy Mild nausea, Verified 10/13/20 14:08 vomiting, neuro complications Home Medications Medication Instructions Recorded Confirmed Type B Complex Plus Vitamin C 1 cap PO HS 12/29/18 10/13/20 History magnesium 30 mg PO HS 12/29/18 10/13/20 History multivitamin 1 tab PO HS 12/29/18 10/13/20 History paroxetine HCl [Paxil] 20 mg PO PM 12/29/18 10/13/20 History meclizine 12.5 mg PO UD PRN 10/06/20 10/13/20 History omeprazole 40 mg PO BID PRN 10/06/20 10/13/20 History ondansetron HCl 4 mg PO Q6 PRN 10/06/20 10/13/20 History Patient History Medical History Anxiety Chronic back pain GERD (gastroesophageal reflux disease) MEDS PRN Migraine hx Mitral valve prolapse NO ECHO FOR AT LEAST TEN YRS. NO MURMUR ON EXAM AT PAT. Nausea and vomiting after administration of anesthetic agent just nausea Osteoarthritis Pap smear abnormality of cervix Right hip pain Surgical History H/O colposcopy with cervical biopsy History of appendectomy History of back surgery LUMBAR- DRILLED OUT NERVES UNSURE OF LEVELS History of breast biopsy years ago History of colonoscopy History of endometrial ablation 03/19/2019-D&C Hysteroscopy w/endo ablation History of esophagogastroduodenoscopy (EGD) History of tooth extraction Hx of elbow surgery right S/P laparoscopic hysterectomy Family History Mother Arthritis Father Hypertension Grandmother (Maternal) Breast cancer Stroke Heart disease Grandmother (Paternal) Breast cancer Hypertension Grandfather (Maternal) Stroke Ulcerative colitis Hypertension Aunt Aneurysm Denies family history of Ovarian cancer Colorectal cancer Social History Smoking Status: Never smoker Second Hand Exposure: No; Hx Alcohol Use: Yes Alcohol type: beer, wine and hard liquor Hx Substance Use: No Preferred Language: [place] Islander Communication Ability: Effective Release Coordinator Required: No Beliefs That Will Affect Care: None Current Living Situation: Spouse Other Information That Helps Us Care for You: No Feels Safe at Home: Yes Safety Concerns: Feels Safe At This Time Assistive Devices: None Review of Systems Review of Systems: All systems reviewed & are unremarkable except as noted in HPI & below Physical Exam Constitutional: WD/WN, vitals as above Respiratory: normal respiratory effort; no respiratory distress and no labored breathing Gastrointestinal (Abdomen): Inspection/Auscultation: abdomen normal to inspection and + abdominal surgical scar (well healed, c/d/i); abdomen not distended Percussion/Palpation: + abdomen tender (minimally TTP in RLQ as described in HPI) and abdomen soft; no guarding and abdomen not rigid Results & Data ([facility]) Vital Signs (Past 12 Hours) Vital Signs Temp Pulse Pulse Resp BP Pulse Ox 10/14/20 11:39 98.6 F 81 20 120/78 91 10/14/20 08:03 98.2 F 80 19 114/77 96 10/14/20 07:52 83 10/14/20 03:06 98.6 F 88 18 111/75 96 PG Care Time/CCT Total # of Minutes Spent Total Time Spent with Patient: Total time spent is greater than 50% in coordination of care (as documented) at patient's floor/unit and/or counseling patient: Coding Level of Care Code 55162 Inpt Consult Level 3 Diagnoses Acute pulmonary embolism I26.99 Post-operative state Z98.890
[2020-10-14] MEDS: ACETAMINOPHEN 325 MG TAB PO PRN ×2 (15:50→21:22)
[2020-10-14 17:46] LABS: Partial Thromboplastin Ratio 2.5
[2020-10-14] MEDS: PARoxetine HCL 20 MG TAB PO SCH (21:22)
[2020-10-15] MEDS: HEPARIN SODIUM/DEXTROSE 25,000 UNITS/500 ML BAG IV SCH (02:08)
[2020-10-15 06:06] LABS: Hematocrit (blood only) 38.8 % (37-47); Hemoglobin 12.7 g/dL (12.0-16.0); Mean Corpuscular Hemoglobin 30.8 pg (25-34); Mean Corpuscular Hgb Conc 32.7 g/dL (32-36); Mean Corpuscular Volume 93.9 fL (80-100); Mean Platelet Volume 9.9 fL (7.4-10.4); Platelet Count 206 K/uL (130-400); RDW Coefficient of Variation 13.6 % (11.5-14.5); RDW Standard Deviation 46.5 fL (36.4-46.3); Red Blood Count 4.13 M/uL (4.2-5.4); White Blood Count 4.15 K/uL (4.8-10.8)
--- NOTE | 2020-10-15 06:07 | Electrocardiogram Report ---
Test Reason : Blood Pressure : / mmHG Vent. Rate : 069 BPM Atrial Rate : 069 BPM P-R Int : 144 ms QRS Dur : 080 ms QT Int : 424 ms P-R-T Axes : 053 082 069 degrees QTc Int : 454 ms Normal sinus rhythm Normal ECG When compared with ECG of 13-OCT-2020 11:40, Vent. rate has decreased BY 34 BPM Nonspecific T wave abnormality no longer evident in Inferior leads Nonspecific T wave abnormality, improved in Anterolateral leads Confirmed by Giuseppe Rashid ([id number]) on 10/15/2020 6:07:00 AM Referred By: REFERRED SELF Confirmed By:Giuseppe Rashid
--- NOTE | 2020-10-15 06:11 | Electrocardiogram Report ---
Test Reason : Blood Pressure : / mmHG Vent. Rate : 068 BPM Atrial Rate : 068 BPM P-R Int : 148 ms QRS Dur : 084 ms QT Int : 402 ms P-R-T Axes : 059 077 063 degrees QTc Int : 427 ms Normal sinus rhythm Normal ECG When compared with ECG of 13-OCT-2020 17:33, No significant change was found Confirmed by Giuseppe Rashid ([id number]) on 10/15/2020 6:10:47 AM Referred By: REFERRED SELF Confirmed By:Giuseppe Rashid
[2020-10-15 06:32] LABS: Partial Thromboplastin Ratio 3.2
[2020-10-15 06:36] LABS: Albumin Level 3.4 gm/dl (3.4-5.0); BUN Creatinine Ratio 13.4 (10-20); Calcium 8.6 mg/dl (8.5-10.1); Creatinine Clr Calc Pharmacy 86.7 ml/min; Potassium 3.7 mmol/L (3.5-5.1)
[2020-10-15 06:39] LABS: Albumin Globulin Ratio 0.9 (0.9-2); Bilirubin,Total 0.4 mg/dl (0.2-1); Globulin 3.7 gm/dl (2.5-4.0); Total Protein 7.1 gm/dl (6.4-8.2)
[2020-10-15 07:02] LABS: Partial Thromboplastin Time 84.6 Seconds (21.0-31.0)
[2020-10-15] MEDS ORDERED: oxyCODONE HCL IR 5 MG TAB (IMMEDIATE RELEASE) PO PRN (09:16)
[2020-10-15] MEDS ORDERED: ACETAMINOPHEN 1000 MG/100 ML IV IV ONE (09:20)
[2020-10-15] MEDS ORDERED: ALUMINUM/MAGNESIUM SUSP 30 ML UDC PO PRN (09:21)
[2020-10-15] MEDS: ASPIRIN 81 MG ECTAB PO SCH (09:37)
[2020-10-15] MEDS ORDERED: POTASSIUM CHLORIDE CRTAB 20 MEQ TABCR PO STA (09:44)
--- NOTE | 2020-10-15 09:50 | Hospitalist Progress Note ---
Date of Service October 15, 2020 Assessment & Plan (1) Frequent PVCs: (2) Palpitation: (3) Chest pain: Acute Right lower lobe PE -Initially admitted for chest pain with PVCs, ACS rule out -However chest pain worsened and CTA was obtained, consistent with right lower lobe PE -cardiac enzymes negative -Echo -normal LV chamber size and mild concentric LVH. Normal LV systolic function, EF 55 to 60%. No segmental LV wall motion abnormalities are noted. Grade 1 diastolic dysfunction. The right ventricular cavity size is normal. There is trace mitral regurg. -Patient started on IV heparin for PE treatment -no ischemic concerns per cardiology -Patient had surgery, hysterectomy, about 6 to 7 weeks ago, discussed with gynecology - no marble finisher concerns at this time (4) Migraine: - Hx of such, controlled (5) GERD (gastroesophageal reflux disease): -Patient is not on a PPI or H2 lauren (6) Chronic back pain: -History of such uses Tylenol, ibuprofen as needed (7) Anxiety: -History of such, well maintained on Paxil 20 mg daily, continue DVt ppx: - teds, scds CODE: Full code Dispo: From home, likely to remain in the hospital x 1-2 days Admission and Anticipated Discharge Date Admission Date: October 14, 2020 Subjective Patient seen in follow-up of chest pain Found to have right lower lobe PE Currently on IV heparin, laying in bed, reports feeling lightheaded this AM She is breathing on room air satting 97%, denies any lower extremity edema or pain Review of Systems Review of Systems: All systems reviewed & are unremarkable except as noted in HPI & below Constitutional: no fever and no chills Respiratory: no cough + pleuritic chest pain Cardiovascular: + chest pain (pleuritic (w/ inspiration)) Gastrointestinal: no abdominal pain, no nausea and no vomiting Physical Exam Physical Exam: General: awake, alert, no apparent distress Head: Normocephalic, atraumatic ENT: PERRL, EOMI, no pharyngeal exudate, mucous membranes moist Chest: Clear to auscultation, on room air, no adventitious breath sounds Cardiac: Regular rhythm, no murmur, no JVD, normal peripheral pulses, good capillary refill Abdominal: NABS x 4 quadrants, soft, nondistended, nontender to palpation, no rebound or guarding Extremities: Normal inspection, no peripheral edema or erythema, calves nontender to palpation Psych: Normal mood and affect Neuro: AAO x 3, strength intact bilaterally and rated 5/5, no motor deficits, speech is clear, no peripheral sensory deficits Results & Data Results & Data ([facility]) Vital Signs (Past 12 Hours) Vital Signs Temp Pulse Pulse Pulse Resp BP Pulse Ox 10/15/20 08:00 36.9 C 83 16 111/66 98 10/15/20 07:15 37.0 C 81 18 112/73 97 10/15/20 03:25 37.1 C 78 17 107/72 96 10/15/20 00:25 78 10/14/20 23:35 37.0 C 89 17 120/81 94 Laboratory Results 10/15/20 10/15/20 10/15/20 Range/Units 05:55 05:55 05:55 WBC 4.15 L (4.8-10.8) K/uL RBC 4.13 L (4.2-5.4) M/uL Hgb 12.7 (12.0-16.0) g/dL Hct 38.8 (37-47) % MCV 93.9 (80-100) fL MCH 30.8 (25-34) pg MCHC 32.7 (32-36) g/dL RDW Std Deviation 46.5 H (36.4-46.3) fL RDW Coeff of Kirk 13.6 (11.5-14.5) % Plt Count 206 (130-400) K/uL MPV 9.9 (7.4-10.4) fL APTT 84.6 H* (21.0-31.0) Seconds PTT Ratio 3.2 Sodium 141 (136-145) mmol/L Potassium 3.7 (3.5-5.1) mmol/L Chloride 110 H (98-107) mmol/L Carbon Dioxide 30 (21-32) mmol/L Anion Gap 1.0 L (3-11) BUN 10 (7-18) mg/dl Creatinine 0.73 (0.6-1.2) mg/dl Est Cr Clr Drug Dosing 86.7 ml/min Est GFR ( Amer) 109.0 ml/min Est GFR (Non-Af Amer) 94.0 ml/min BUN/Creatinine Ratio 13.4 (10-20) Glucose 89 (70-99) mg/dl Estimat Average Glucose mg/dl Hemoglobin A1c (4.5-5.6) % Calcium 8.6 (8.5-10.1) mg/dl Phosphorus (2.5-4.9) mg/dl Magnesium (1.8-2.4) mg/dl Total Bilirubin 0.4 (0.2-1) mg/dl AST 23 (15-37) U/L ALT 25 (12-78) U/L Alkaline Phosphatase 70 (45-117) U/L Troponin I (0-0.045) ng/ml Total Protein 7.1 (6.4-8.2) gm/dl Albumin 3.4 (3.4-5.0) gm/dl Globulin 3.7 (2.5-4.0) gm/dl Albumin/Globulin Ratio 0.9 (0.9-2) Triglycerides (0-150) mg/dl Cholesterol (0-200) mg/dl LDL Cholesterol, Calc mg/dl VLDL Cholesterol, Calc mg/dl HDL Cholesterol mg/dl Cholesterol/HDL Ratio 10/14/20 10/14/20 10/14/20 Range/Units 16:52 09:14 09:14 WBC (4.8-10.8) K/uL RBC (4.2-5.4) M/uL Hgb (12.0-16.0) g/dL Hct (37-47) % MCV (80-100) fL MCH (25-34) pg MCHC (32-36) g/dL RDW Std Deviation (36.4-46.3) fL RDW Coeff of Kirk (11.5-14.5) % Plt Count (130-400) K/uL MPV (7.4-10.4) fL APTT 65.0 H* 101.7 H* (21.0-31.0) Seconds PTT Ratio 2.5 3.9 Sodium (136-145) mmol/L Potassium (3.5-5.1) mmol/L Chloride (98-107) mmol/L Carbon Dioxide (21-32) mmol/L Anion Gap (3-11) BUN (7-18) mg/dl Creatinine (0.6-1.2) mg/dl Est Cr Clr Drug Dosing ml/min Est GFR ( Amer) ml/min Est GFR (Non-Af Amer) ml/min BUN/Creatinine Ratio (10-20) Glucose (70-99) mg/dl Estimat Average Glucose 108 mg/dl Hemoglobin A1c 5.4 (4.5-5.6) % Calcium (8.5-10.1) mg/dl Phosphorus (2.5-4.9) mg/dl Magnesium (1.8-2.4) mg/dl Total Bilirubin (0.2-1) mg/dl AST (15-37) U/L ALT (12-78) U/L Alkaline Phosphatase (45-117) U/L Troponin I (0-0.045) ng/ml Total Protein (6.4-8.2) gm/dl Albumin (3.4-5.0) gm/dl Globulin (2.5-4.0) gm/dl Albumin/Globulin Ratio (0.9-2) Triglycerides (0-150) mg/dl Cholesterol (0-200) mg/dl LDL Cholesterol, Calc mg/dl VLDL Cholesterol, Calc mg/dl HDL Cholesterol mg/dl Cholesterol/HDL Ratio 10/14/20 Range/Units 09:14 WBC (4.8-10.8) K/uL RBC (4.2-5.4) M/uL Hgb (12.0-16.0) g/dL Hct (37-47) % MCV (80-100) fL MCH (25-34) pg MCHC (32-36) g/dL RDW Std Deviation (36.4-46.3) fL RDW Coeff of Kirk (11.5-14.5) % Plt Count (130-400) K/uL MPV (7.4-10.4) fL APTT (21.0-31.0) Seconds PTT Ratio Sodium 140 (136-145) mmol/L Potassium 3.8 (3.5-5.1) mmol/L Chloride 111 H (98-107) mmol/L Carbon Dioxide 24 (21-32) mmol/L Anion Gap 5.0 (3-11) BUN 10 (7-18) mg/dl Creatinine 0.69 (0.6-1.2) mg/dl Est Cr Clr Drug Dosing 93.2 ml/min Est GFR ( Amer) 115.2 ml/min Est GFR (Non-Af Amer) 99.4 ml/min BUN/Creatinine Ratio 14.2 (10-20) Glucose 89 (70-99) mg/dl Estimat Average Glucose mg/dl Hemoglobin A1c (4.5-5.6) % Calcium 8.4 L (8.5-10.1) mg/dl Phosphorus 2.6 (2.5-4.9) mg/dl Magnesium 2.1 (1.8-2.4) mg/dl Total Bilirubin 0.3 (0.2-1) mg/dl AST 17 (15-37) U/L ALT 18 (12-78) U/L Alkaline Phosphatase 67 (45-117) U/L Troponin I < 0.015 (0-0.045) ng/ml Total Protein 6.8 (6.4-8.2) gm/dl Albumin 3.4 (3.4-5.0) gm/dl Globulin 3.4 (2.5-4.0) gm/dl Albumin/Globulin Ratio 1.0 (0.9-2) Triglycerides 51 (0-150) mg/dl Cholesterol 129 (0-200) mg/dl LDL Cholesterol, Calc 59 mg/dl VLDL Cholesterol, Calc 10 mg/dl HDL Cholesterol 60 mg/dl Cholesterol/HDL Ratio 2 Medications Administered Current Inpatient Medications Acetaminophen (Acetaminophen 325 Mg Tab) 650 mg PO Q4H PRN PRN Reason: Moderate Pain Stop: 11/12/20 16:53 Last Admin: 10/14/20 21:22 Dose: 650 mg Documented by: Al Hydrox/Mg Hydrox/Simethicone (Aluminum/Magnesium Susp 30 Ml Udc) 30 ml PO Q6H PRN PRN Reason: indgestion Stop: 11/14/20 09:20 Last Admin: 10/15/20 09:37 Dose: 30 ml Documented by: Aspirin (Aspirin 81 Mg Ectab) 81 mg PO DAILY [facility] Stop: 11/13/20 08:59 Last Admin: 10/15/20 09:37 Dose: 81 mg Documented by: Heparin Sodium/Dextrose (Heparin Sodium/Dextrose) 25,000 units in 500 mls @ 20 mls/hr IV .Q24H [facility]; Protocol Stop: 11/13/20 02:29 Last Admin: 10/15/20 02:08 Dose: 1,000 units/hr, 20 mls/hr Documented by: Lidocaine (Lidocaine 5% 1 Patch) [facility] Stop: 11/14/20 09:59 Miscellaneous (Remove Lidoderm Patch) 1 ea N/A DAILY@2100 [facility] Stop: 11/14/20 20:59 Nitroglycerin (Nitroglycerin Sl 0.4 Mg/Tab Tab) 0.4 mg SL PRN PRN PRN Reason: chest pain Stop: 11/12/20 16:53 Ondansetron HCl (Ondansetron Inj 2 Mg/Ml 2 Ml Vial) 4 mg IV Q4H PRN PRN Reason: Nausea And Vomiting Stop: 11/12/20 16:53 Last Admin: 10/14/20 05:19 Dose: 4 mg Documented by: Oxycodone HCl (Oxycodone Hcl Ir 5 Mg Tab (Immediate Release)) 5 mg PO Q4H PRN PRN Reason: Pain Stop: 10/29/20 09:15 Pantoprazole Sodium (Pantoprazole 40 Mg Tab) 40 mg PO BID PRN PRN Reason: gastric upset Stop: 11/12/20 17:03 Paroxetine HCl (Paroxetine Hcl 20 Mg Tab) 20 mg PO PM [facility] Stop: 11/12/20 20:59 Last Admin: 10/14/20 21:22 Dose: 20 mg Documented by: (1) Chest pain Chest pain type: unspecified Qualified Code(s): R07.9 - Chest pain, unspecified
--- NOTE | 2020-10-15 10:00 | XRay Report ---
XR chest 1V portable CLINICAL HISTORY: chest pain COMPARISON STUDY: October 13, 2020 FINDINGS: No pneumothorax. No pleural effusion. No large infiltrates or consolidative lesions are seen. Cardiomediastinal silhouette is within normal limits in size. No significant pulmonary vascular congestion.. Osseous structures: unremarkable redemonstration of mild thoracolumbar scoliosis with minimal degene rative changes of the spine. IMPRESSION: 1. No acute pulmonary process. ACT 112: Negative or not required by law. The above report was generated using voice recognition software. It may contain grammatical, syntax o r spelling errors. Electronically signed by: Kristina Farris DO 10/15/2020 9:58 AM
[2020-10-15 10:23] LABS: Magnesium 2.3 mg/dl (1.8-2.4); Troponin I < 0.015 ng/ml (0-0.045)
--- NOTE | 2020-10-15 10:27 | Electrocardiogram Report ---
Test Reason : Blood Pressure : / mmHG Vent. Rate : 084 BPM Atrial Rate : 084 BPM P-R Int : 132 ms QRS Dur : 088 ms QT Int : 346 ms P-R-T Axes : 057 069 046 degrees QTc Int : 408 ms Normal sinus rhythm Nonspecific T wave abnormality Abnormal ECG When compared with ECG of 13-OCT-2020 21:05, Nonspecific T wave abnormality now evident in Inferior leads Nonspecific T wave abnormality, worse in Anterolateral leads Confirmed by Kenrick Duenas ([id number]) on 10/15/2020 10:26:57 AM Referred By: REFERRED SELF Confirmed By:Julito Duenas
--- NOTE | 2020-10-15 10:53 | CT Scan Report ---
CT chest diagnostic wo con CLINICAL HISTORY: chest pain, hx of PE COMPARISON STUDY: No previous studies for comparison. CT DOSE: 190.63 mGy.cm TECHNIQUE: CT of the thorax was performed from the thoracic inlet to the lung bases. Images are revi ewed in the axial, sagittal, and coronal planes. IV contrast was not administered for this examinatio n. A dose lowering technique was utilized adhering to the principles of ALARA. FINDINGS: No pathological lymphadenopathy. Thyroid: Imaged portions of the thyroid gland are normal in appearance. Thoracic aorta: The thoracic aorta is normal in course and caliber, noting standard 3 vessel arch grace maria elena. Heart: The heart is normal in size and configuration, without pericardial effusion. Lungs and pleural spaces: Tracheobronchial tree is patent. Mild atelectasis is seen at dependent portions of bilateral lower lobes. Redemonstration of ill-defined groundglass opacity subpleural aspect of the lateral basal segment of the right lower lobe which is slightly enlarged since prior study, might represent focal consolidatio n however pulmonary infarct cannot be completely excluded in this patient with recent prior history o f pulmonary embolus. Small atelectasis is seen within lingula. Upper abdomen: Partially visualized upper abdominal viscera is within normal limits. Skeletal structures: Mild scoliosis. No significant degenerative changes. IMPRESSION: 1. Mild interval enlargement of the groundglass lesion within lateral basal segment of the right low er lobe which might represent focal infiltrate or pulmonary infarct. Short-term follow-up in 4-6 week s is recommended to document improvement/resolution. ACT 112: Positive. There are findings on this exam that require communication between the performing entity and the patient following Patient Test Result Information Act ([place] Act 112) guidelines. The above report was generated using voice recognition software. It may contain grammatical, syntax o r spelling errors. Electronically signed by: Kristina Farris DO 10/15/2020 10:51 AM
[2020-10-15] MEDS: LIDOCAINE 5% 1 PATCH TD SCH (11:24)
[2020-10-15] MEDS ORDERED: MECLIZINE 12.5 MG TAB PO PRN (12:16)
[2020-10-15] MEDS: FAMOTIDINE 20 MG TAB PO SCH (13:24)
[2020-10-15 14:59] LABS: Partial Thromboplastin Ratio 2.2
[2020-10-15] MEDS: ACETAMINOPHEN 325 MG TAB PO PRN (15:30)
[2020-10-15] MEDS ORDERED: ACETAMINOPHEN 1000 MG/100 ML IV IV PRN (16:28)
[2020-10-15] MEDS: PARoxetine HCL 20 MG TAB PO SCH (20:56)
[2020-10-16] MEDS: HEPARIN SODIUM/DEXTROSE 25,000 UNITS/500 ML BAG IV SCH (06:12)
[2020-10-16] MEDS ORDERED: KETOROLAC TROMETHAMINE 15 MG/ML VIAL IV ONE (06:29)
--- NOTE | 2020-10-16 07:31 | Hospitalist Progress Note ---
Date of Service October 16, 2020 Assessment & Plan (1) Frequent PVCs: (2) Palpitation: (3) Chest pain: Acute Right lower lobe PE -Initially admitted for chest pain with PVCs, ACS rule out -However chest pain worsened and CTA was obtained, consistent with right lower lobe PE -cardiac enzymes negative -Echo -normal LV chamber size and mild concentric LVH. Normal LV systolic function, EF 55 to 60%. No segmental LV wall motion abnormalities are noted. Grade 1 diastolic dysfunction. The right ventricular cavity size is normal. There is trace mitral regurg. -Patient started on IV heparin for PE treatment -no ischemic concerns per cardiology -Patient had surgery, hysterectomy, about 6 to 7 weeks ago, discussed with gynecology - no manager of care concerns at this time (4) Migraine: - Hx of such, controlled (5) GERD (gastroesophageal reflux disease): -Patient is not on a PPI or H2 lauren (6) Chronic back pain: -History of such uses Tylenol, ibuprofen as needed (7) Anxiety: -History of such, well maintained on Paxil 20 mg daily, continue DVt ppx: - teds, scds CODE: Full code Dispo: Likely to be discharged home tomorrow Admission and Anticipated Discharge Date Admission Date: October 14, 2020 Subjective Patient seen in follow-up of chest pain secondary to right lower lobe PE Currently on IV heparin, laying in bed, reports feeling better, but continues to have chest pain, now at right side She is inquiring about going home She is breathing on room air satting 96%, denies any lower extremity edema or pain Review of Systems Review of Systems: All systems reviewed & are unremarkable except as noted in HPI & below Constitutional: no fever and no chills Respiratory: no cough and no dyspnea + pleuritic chest pain Cardiovascular: + chest pain (pleuritic (w/ inspiration)); no palpitations Gastrointestinal: no abdominal pain and no vomiting Physical Exam Physical Exam: General: awake, alert, no apparent distress Head: Normocephalic, atraumatic ENT: PERRL, EOMI, no pharyngeal exudate, mucous membranes moist Chest: Clear to auscultation, on room air, no adventitious breath sounds Cardiac: Regular rhythm, no murmur, no JVD, normal peripheral pulses, good capillary refill Abdominal: NABS x 4 quadrants, soft, nondistended, nontender to palpation, no rebound or guarding Extremities: Normal inspection, no peripheral edema or erythema, calves nontender to palpation Psych: Normal mood and affect Neuro: AAO x 3, strength intact bilaterally and rated 5/5, no motor deficits, speech is clear, no peripheral sensory deficits Results & Data Results & Data ([facility]) Vital Signs (Past 12 Hours) Vital Signs Temp Pulse Pulse Resp BP Pulse Ox 10/16/20 03:23 36.6 C 70 18 112/73 93 10/15/20 23:19 36.6 C 74 18 103/69 96 10/15/20 22:20 78 10/15/20 19:47 36.9 C 83 18 102/70 95 Laboratory Results 10/16/20 10/16/20 10/16/20 Range/Units 07:10 07:10 07:10 WBC 5.70 (4.8-10.8) K/uL RBC 4.08 L (4.2-5.4) M/uL Hgb 12.8 (12.0-16.0) g/dL Hct 38.0 (37-47) % MCV 93.1 (80-100) fL MCH 31.4 (25-34) pg MCHC 33.7 (32-36) g/dL RDW Std Deviation 46.0 (36.4-46.3) fL RDW Coeff of Kirk 13.5 (11.5-14.5) % Plt Count 235 (130-400) K/uL MPV 10.5 H (7.4-10.4) fL APTT 65.9 H* (21.0-31.0) Seconds PTT Ratio 2.5 Sodium 140 (136-145) mmol/L Potassium 3.6 (3.5-5.1) mmol/L Chloride 109 H (98-107) mmol/L Carbon Dioxide 27 (21-32) mmol/L Anion Gap 5.0 (3-11) BUN 12 (7-18) mg/dl Creatinine 0.71 (0.6-1.2) mg/dl Est Cr Clr Drug Dosing 82.5 ml/min Est GFR ( Amer) 112.7 ml/min Est GFR (Non-Af Amer) 97.2 ml/min BUN/Creatinine Ratio 16.4 (10-20) Glucose 93 (70-99) mg/dl Calcium 8.5 (8.5-10.1) mg/dl Magnesium 2.4 (1.8-2.4) mg/dl Total Bilirubin 0.2 (0.2-1) mg/dl AST 24 (15-37) U/L ALT 30 (12-78) U/L Alkaline Phosphatase 69 (45-117) U/L Total Protein 7.3 (6.4-8.2) gm/dl Albumin 3.5 (3.4-5.0) gm/dl Globulin 3.8 (2.5-4.0) gm/dl Albumin/Globulin Ratio 0.9 (0.9-2) Procalcitonin (0-0.5) ng/ml 10/15/20 10/15/20 Range/Units 14:24 11:06 WBC (4.8-10.8) K/uL RBC (4.2-5.4) M/uL Hgb (12.0-16.0) g/dL Hct (37-47) % MCV (80-100) fL MCH (25-34) pg MCHC (32-36) g/dL RDW Std Deviation (36.4-46.3) fL RDW Coeff of Kirk (11.5-14.5) % Plt Count (130-400) K/uL MPV (7.4-10.4) fL APTT 58.0 H* (21.0-31.0) Seconds PTT Ratio 2.2 Sodium (136-145) mmol/L Potassium (3.5-5.1) mmol/L Chloride (98-107) mmol/L Carbon Dioxide (21-32) mmol/L Anion Gap (3-11) BUN (7-18) mg/dl Creatinine (0.6-1.2) mg/dl Est Cr Clr Drug Dosing ml/min Est GFR ( Amer) ml/min Est GFR (Non-Af Amer) ml/min BUN/Creatinine Ratio (10-20) Glucose (70-99) mg/dl Calcium (8.5-10.1) mg/dl Magnesium (1.8-2.4) mg/dl Total Bilirubin (0.2-1) mg/dl AST (15-37) U/L ALT (12-78) U/L Alkaline Phosphatase (45-117) U/L Total Protein (6.4-8.2) gm/dl Albumin (3.4-5.0) gm/dl Globulin (2.5-4.0) gm/dl Albumin/Globulin Ratio (0.9-2) Procalcitonin < 0.05 (0-0.5) ng/ml Medications Administered Current Inpatient Medications Acetaminophen (Acetaminophen 325 Mg Tab) 650 mg PO Q4H PRN PRN Reason: Moderate Pain Stop: 11/12/20 16:53 Last Admin: 10/15/20 15:30 Dose: 650 mg Documented by: Acetaminophen (Acetaminophen 1000 Mg/100 Ml Iv) 1,000 mg IV Q8H PRN PRN Reason: Pain Stop: 10/18/20 16:27 Last Admin: 10/15/20 20:50 Dose: 1,000 mg Documented by: Al Hydrox/Mg Hydrox/Simethicone (Aluminum/Magnesium Susp 30 Ml Udc) 30 ml PO Q6H PRN PRN Reason: indgestion Stop: 11/14/20 09:20 Last Admin: 10/15/20 09:37 Dose: 30 ml Documented by: Aspirin (Aspirin 81 Mg Ectab) 81 mg PO DAILY [facility] Stop: 11/13/20 08:59 Last Admin: 10/16/20 07:59 Dose: 81 mg Documented by: Famotidine (Famotidine 20 Mg Tab) 20 mg PO QAM [facility] Stop: 11/14/20 12:29 Last Admin: 10/16/20 08:00 Dose: 20 mg Documented by: Heparin Sodium/Dextrose (Heparin Sodium/Dextrose) 25,000 units in 500 mls @ 18 mls/hr IV .Q24H [facility]; Protocol Stop: 11/13/20 02:29 Last Titration: 10/16/20 07:13 Dose: 900 units/hr, 18 mls/hr Documented by: Lidocaine (Lidocaine 5% 1 Patch) 1 patch TD QAM [facility] Stop: 11/14/20 09:59 Last Admin: 10/16/20 08:50 Dose: 1 patch Documented by: Meclizine HCl (Meclizine 12.5 Mg Tab) 12.5 mg PO Q4H PRN PRN Reason: vertigo, dizziness Stop: 11/14/20 12:15 Miscellaneous (Remove Lidoderm Patch) 1 ea N/A DAILY@2100 [facility] Stop: 11/14/20 20:59 Last Admin: 10/15/20 20:57 Dose: Not Given Documented by: Nitroglycerin (Nitroglycerin Sl 0.4 Mg/Tab Tab) 0.4 mg SL PRN PRN PRN Reason: chest pain Stop: 11/12/20 16:53 Ondansetron HCl (Ondansetron Inj 2 Mg/Ml 2 Ml Vial) 4 mg IV Q4H PRN PRN Reason: Nausea And Vomiting Stop: 11/12/20 16:53 Last Admin: 10/14/20 05:19 Dose: 4 mg Documented by: Oxycodone HCl (Oxycodone Hcl Ir 5 Mg Tab (Immediate Release)) 5 mg PO Q4H PRN PRN Reason: Pain Stop: 10/29/20 09:15 Pantoprazole Sodium (Pantoprazole 40 Mg Tab) 40 mg PO BID PRN PRN Reason: gastric upset Stop: 11/12/20 17:03 Paroxetine HCl (Paroxetine Hcl 20 Mg Tab) 20 mg PO PM [facility] Stop: 11/12/20 20:59 Last Admin: 10/15/20 20:56 Dose: 20 mg Documented by: (1) Chest pain Chest pain type: unspecified Qualified Code(s): R07.9 - Chest pain, unspecified
[2020-10-16 07:53] LABS: Hemoglobin 12.8 g/dL (12.0-16.0); Mean Corpuscular Hemoglobin 31.4 pg (25-34); Mean Corpuscular Hgb Conc 33.7 g/dL (32-36); Mean Corpuscular Volume 93.1 fL (80-100); Mean Platelet Volume 10.5 fL (7.4-10.4); Platelet Count 235 K/uL (130-400); RDW Coefficient of Variation 13.5 % (11.5-14.5); Red Blood Count 4.08 M/uL (4.2-5.4)
[2020-10-16 07:56] LABS: Albumin Level 3.5 gm/dl (3.4-5.0); BUN Creatinine Ratio 16.4 (10-20); Calcium 8.5 mg/dl (8.5-10.1); Creatinine Clr Calc Pharmacy 82.5 ml/min; Est GFR (African American) 112.7 ml/min; Est GFR (Non-African American) 97.2 ml/min; Magnesium 2.4 mg/dl (1.8-2.4); Potassium 3.6 mmol/L (3.5-5.1)
[2020-10-16 07:59] LABS: Albumin Globulin Ratio 0.9 (0.9-2); Bilirubin,Total 0.2 mg/dl (0.2-1); Globulin 3.8 gm/dl (2.5-4.0); Partial Thromboplastin Ratio 2.5; Partial Thromboplastin Time 65.9 Seconds (21.0-31.0); Total Protein 7.3 gm/dl (6.4-8.2)
[2020-10-16] MEDS: ASPIRIN 81 MG ECTAB PO SCH (07:59)
[2020-10-16] MEDS: FAMOTIDINE 20 MG TAB PO SCH (08:00)
[2020-10-16] MEDS: LIDOCAINE 5% 1 PATCH TD SCH (08:50)
[2020-10-16] MEDS ORDERED: POTASSIUM CHLORIDE CRTAB 20 MEQ TABCR PO STA (12:02)
[2020-10-16] MEDS ORDERED: oxyCODONE HCL IR 5 MG TAB (IMMEDIATE RELEASE) PO PRN (13:04)
[2020-10-16] MEDS: APIXABAN 5 MG TABLET PO SCH (21:04)
[2020-10-16] MEDS: PARoxetine HCL 20 MG TAB PO SCH (21:05)
[2020-10-17] MEDS: HEPARIN SODIUM/DEXTROSE 25,000 UNITS/500 ML BAG IV SCH (07:26)
[2020-10-17 07:42] LABS: Hematocrit (blood only) 40.6 % (37-47); Hemoglobin 13.3 g/dL (12.0-16.0); Mean Corpuscular Hemoglobin 31.4 pg (25-34); Mean Corpuscular Hgb Conc 32.8 g/dL (32-36); Mean Platelet Volume 10.4 fL (7.4-10.4); Platelet Count 241 K/uL (130-400); RDW Coefficient of Variation 13.5 % (11.5-14.5); RDW Standard Deviation 47.5 fL (36.4-46.3); Red Blood Count 4.23 M/uL (4.2-5.4); White Blood Count 4.04 K/uL (4.8-10.8)
--- NOTE | 2020-10-17 07:45 | Hospitalist Progress Note ---
Date of Service October 17, 2020 Assessment & Plan (1) Frequent PVCs: (2) Palpitation: (3) Chest pain: Acute Right lower lobe PE -Initially admitted for chest pain with PVCs, ACS rule out -However chest pain worsened and CTA was obtained, consistent with right lower lobe PE -cardiac enzymes negative -Echo -normal LV chamber size and mild concentric LVH. Normal LV systolic function, EF 55 to 60%. No segmental LV wall motion abnormalities are noted. Grade 1 diastolic dysfunction. The right ventricular cavity size is normal. There is trace mitral regurg. 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 She is feeling much better, her pleuritic chest pain has resolved. Patient will be discharged on Eliquis (4) Migraine: - Hx of such, controlled (5) GERD (gastroesophageal reflux disease): -Patient is not on a PPI or H2 lauren (6) Chronic back pain: -History of such uses Tylenol, ibuprofen as needed (7) Anxiety: -History of such, well maintained on Paxil 20 mg daily, continue DVt ppx: - scds, iv heparin CODE: Full code Dispo: Plan to discharge home today Admission and Anticipated Discharge Date Admission Date: October 14, 2020 Subjective Patient seen in follow-up of chest pain secondary to right lower lobe PE Stopped IV heparin, last night and started pt on Eliquis Patient reports she is feeling much better, her pleuritic chest pain has resolved She is breathing on room air satting 97%, denies any lower extremity edema or pain Review of Systems Review of Systems: All systems reviewed & are unremarkable except as noted in HPI & below Constitutional: no fever and no chills Respiratory: no cough and no dyspnea Cardiovascular: no chest pain and no palpitations Gastrointestinal: no abdominal pain, no nausea and no vomiting Physical Exam Physical Exam: General: awake, alert, no apparent distress Head: Normocephalic, atraumatic ENT: PERRL, EOMI, no pharyngeal exudate, mucous membranes moist Chest: Clear to auscultation, on room air, no adventitious breath sounds Cardiac: Regular rhythm, no murmur, no JVD, normal peripheral pulses, good capillary refill Abdominal: NABS x 4 quadrants, soft, nondistended, nontender to palpation, no rebound or guarding Extremities: Normal inspection, no peripheral edema or erythema, calves nontender to palpation Psych: Normal mood and affect Neuro: AAO x 3, strength intact bilaterally and rated 5/5, no motor deficits, speech is clear, no peripheral sensory deficits Results & Data Results & Data ([facility]) Vital Signs (Past 12 Hours) Vital Signs Temp Pulse Resp BP Pulse Ox 10/17/20 07:22 36.7 C 69 19 112/77 97 10/17/20 03:05 36.8 C 81 18 95/66 L 95 10/16/20 23:01 37.0 C 116 H 20 135/85 94 Laboratory Results 10/17/20 10/17/20 10/17/20 Range/Units 07:01 07:01 07:01 WBC 4.04 L (4.8-10.8) K/uL RBC 4.23 (4.2-5.4) M/uL Hgb 13.3 (12.0-16.0) g/dL Hct 40.6 (37-47) % MCV 96.0 (80-100) fL MCH 31.4 (25-34) pg MCHC 32.8 (32-36) g/dL RDW Std Deviation 47.5 H (36.4-46.3) fL RDW Coeff of Kirk 13.5 (11.5-14.5) % Plt Count 241 (130-400) K/uL MPV 10.4 (7.4-10.4) fL APTT 25.5 (21.0-31.0) Seconds PTT Ratio 1.0 Sodium 140 (136-145) mmol/L Potassium 4.2 D (3.5-5.1) mmol/L Chloride 109 H (98-107) mmol/L Carbon Dioxide 29 (21-32) mmol/L Anion Gap 3.0 (3-11) BUN 13 (7-18) mg/dl Creatinine 0.71 (0.6-1.2) mg/dl Est Cr Clr Drug Dosing 89.7 ml/min Est GFR ( Amer) 112.7 ml/min Est GFR (Non-Af Amer) 97.2 ml/min BUN/Creatinine Ratio 17.9 (10-20) Glucose 82 (70-99) mg/dl Calcium 9.0 (8.5-10.1) mg/dl Magnesium 2.2 (1.8-2.4) mg/dl Medications Administered Current Inpatient Medications Acetaminophen (Acetaminophen 325 Mg Tab) 650 mg PO Q4H PRN PRN Reason: Moderate Pain Stop: 11/12/20 16:53 Last Admin: 10/15/20 15:30 Dose: 650 mg Documented by: Acetaminophen (Acetaminophen 1000 Mg/100 Ml Iv) 1,000 mg IV Q8H PRN PRN Reason: Pain Stop: 10/18/20 16:27 Last Admin: 10/15/20 20:50 Dose: 1,000 mg Documented by: Al Hydrox/Mg Hydrox/Simethicone (Aluminum/Magnesium Susp 30 Ml Udc) 30 ml PO Q6H PRN PRN Reason: indgestion Stop: 11/14/20 09:20 Last Admin: 10/15/20 09:37 Dose: 30 ml Documented by: Apixaban (Apixaban 5 Mg Tablet) 10 mg PO BID [facility] Stop: 10/23/20 09:01 Last Admin: 10/17/20 08:11 Dose: 10 mg Documented by: Aspirin (Aspirin 81 Mg Ectab) 81 mg PO DAILY [facility] Stop: 11/13/20 08:59 Last Admin: 10/17/20 08:11 Dose: 81 mg Documented by: Famotidine (Famotidine 20 Mg Tab) 20 mg PO QAM [facility] Stop: 11/14/20 12:29 Last Admin: 10/17/20 08:11 Dose: 20 mg Documented by: Lidocaine (Lidocaine 5% 1 Patch) [facility] Stop: 11/14/20 09:59 Last Admin: 10/17/20 08:12 Dose: Not Given Documented by: Meclizine HCl (Meclizine 12.5 Mg Tab) 12.5 mg PO Q4H PRN PRN Reason: vertigo, dizziness Stop: 11/14/20 12:15 Miscellaneous (Remove Lidoderm Patch) 1 ea N/A DAILY@2100 [facility] Stop: 11/14/20 20:59 Last Admin: 10/16/20 21:05 Dose: 1 ea Documented by: Nitroglycerin (Nitroglycerin Sl 0.4 Mg/Tab Tab) 0.4 mg SL PRN PRN PRN Reason: chest pain Stop: 11/12/20 16:53 Ondansetron HCl (Ondansetron Inj 2 Mg/Ml 2 Ml Vial) 4 mg IV Q4H PRN PRN Reason: Nausea And Vomiting Stop: 11/12/20 16:53 Last Admin: 10/14/20 05:19 Dose: 4 mg Documented by: Oxycodone HCl (Oxycodone Hcl Ir 5 Mg Tab (Immediate Release)) 2.5 mg PO Q4H PRN PRN Reason: Pain Stop: 10/29/20 09:15 Pantoprazole Sodium (Pantoprazole 40 Mg Tab) 40 mg PO BID PRN PRN Reason: gastric upset Stop: 11/12/20 17:03 Paroxetine HCl (Paroxetine Hcl 20 Mg Tab) 20 mg PO PM [facility] Stop: 11/12/20 20:59 Last Admin: 10/16/20 21:05 Dose: 20 mg Documented by: (1) Chest pain Chest pain type: unspecified Qualified Code(s): R07.9 - Chest pain, unspecified
[2020-10-17 07:51] LABS: Partial Thromboplastin Time 25.5 Seconds (21.0-31.0)
[2020-10-17] MEDS: ASPIRIN 81 MG ECTAB PO SCH (08:11)
[2020-10-17] MEDS: APIXABAN 5 MG TABLET PO SCH (08:11)
[2020-10-17] MEDS: FAMOTIDINE 20 MG TAB PO SCH (08:11)
[2020-10-17 08:12] LABS: BUN Creatinine Ratio 17.9 (10-20); Creatinine Clr Calc Pharmacy 89.7 ml/min; Est GFR (African American) 112.7 ml/min; Est GFR (Non-African American) 97.2 ml/min; Magnesium 2.2 mg/dl (1.8-2.4); Potassium 4.2 mmol/L (3.5-5.1)
[2020-10-17] MEDS: LIDOCAINE 5% 1 PATCH TD SCH (08:12)
--- NOTE | 2020-10-17 08:46 | Discharge Summary ---
Date of Service October 17, 2020 Admission HPI Per Admitting Provider This is a 55-year-old female with PMHx of migraine, GERD, chronic back pain, anxiety, osteoarthritis, s/p hysterectomy 08/22/2020, presents with acute onset of chest pain. Patient is here with her who supports the history. She reports that she was in the ER approximately 1 week ago with similar complaints, at that time negative troponins, no EKG changes, chest pain relieved and was sent home. Patient represents today as this morning while she was sitting at her desk working she had acute onset of chest pressure, substernal and left-sided pain which radiated down her left arm and up into the left side of her jaw. She had associated shortness of breath and diaphoresis at that time. This lasted several minutes and then subsided. She continued to have palpitations and felt dizzy throughout the morning and called her PCP who is did schedule her for an appointment tomorrow morning. Due to chest pressure waxing and waning she presented to the ER. Currently she rates her pain as a 3/10, and had Nitropaste 1/2 inch placed prior to my visit. She denies any stressful social or family events that would have prompted an anxiety attack or panic attack that may have caused her above symptoms. Social history: Patient denies any smoking history. She drinks 1 alcoholic beverage daily. Pt walks approximately 1 mile per day since having a hysterectomy surgery performed 6 weeks ago. Prior to her surgery she was walking approximately 3 miles daily for exercise. Since having the surgery for heavy irregular menses, she denies vaginal bleeding, dizziness, fatigue, shortness of breath or other complaints endorsed from blood loss. Family history: Brother-age 53, CAD s/p cardiac stents in his mid 40s Maternal grandmother - of stroke in 60s Maternal grandfather - of stroke in 60s Admission Exam Per Admitting Provider General: awake, alert, no apparent distress Head: Normocephalic, atraumatic ENT: PERRL, EOMI, no pharyngeal exudate, mucous membranes moist Chest: Clear to auscultation, on room air, no adventitious breath sounds Cardiac: Regular rhythm, few extra beats, tachycardic with heart rate in the mid 90s, no murmur, no JVD, normal peripheral pulses, good capillary refill Abdominal: NABS x 4 quadrants, soft, nondistended, nontender to palpation, no rebound or guarding Extremities: Normal inspection, no peripheral edema or erythema, calfs nontender to palpation Psych: Normal mood and affect Neuro: AAO x 3, strength intact bilaterally and rated 5/5, no motor deficits, speech is clear, no peripheral sensory deficits Principal Diagnosis Acute right lower lobe pulmonary embolism Discharge Exam General: awake, alert, no apparent distress Head: Normocephalic, atraumatic ENT: PERRL, EOMI, no pharyngeal exudate, mucous membranes moist Chest: Clear to auscultation, on room air, no adventitious breath sounds Cardiac: Regular rhythm, no murmur, no JVD, normal peripheral pulses, good capillary refill Abdominal: NABS x 4 quadrants, soft, nondistended, nontender to palpation, no rebound or guarding Extremities: Normal inspection, no peripheral edema or erythema, calves nontender to palpation Psych: Normal mood and affect Neuro: AAO x 3, strength intact bilaterally and rated 5/5, no motor deficits, speech is clear, no peripheral sensory deficits Discharge Data Allergies Allergy/AdvReac Type Severity Reaction Status Date / Time Sulfa (Sulfonamide Allergy Intermediate nausea, Verified 10/13/20 14:08 Antibiotics) lethargy Nitrofuran Analogues Allergy Mild nausea, Verified 10/13/20 14:08 vomiting, neuro complications Consultations 10/13/20 14:23 ED Decision to Admit Stat 10/13/20 15:16 Consult Cardiology Routine 10/14/20 13:02 Consult Gynecology Routine Ordered Studies 10/13/20 21:36 CT angio chest PE protocol Urgent IMPRESSION: 1. Interval development of small pulmonary embolus within right lower lobe pulmonary artery branches with questionable peripheral opacity which might represent developing pulmonary infarct. Findings were called to emergency Department. 2. No right heart strain seen. No pulmonary artery dilatation. 3. The rest of findings as detailed above. 10/15/20 09:45 CT chest diagnostic wo con Urgent IMPRESSION: 1. Mild interval enlargement of the groundglass lesion within lateral basal segment of the right lower lobe which might represent focal infiltrate or pulmonary infarct. Short-term follow-up in 4-6 weeks is recommended to document improvement/resolution. Hospital Course (1) Frequent PVCs: (2) Palpitation: (3) Chest pain: Acute Right lower lobe PE -Initially admitted for chest pain with PVCs, ACS rule out -However chest pain worsened and CTA was obtained, consistent with right lower lobe PE -cardiac enzymes negative -Echo -normal LV chamber size and mild concentric LVH. Normal LV systolic function, EF 55 to 60%. No segmental LV wall motion abnormalities are noted. Grade 1 diastolic dysfunction. The right ventricular cavity size is normal. There is trace mitral regurg. 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 Mild interval enlargement of the groundglass lesion within lateral basal segment of the right lower lobe which might represent focal infiltrate or pulmonary infarct. Short-term follow-up in 4-6 weeks is recommended to document improvement/resolution. (10/17) Patient started on Eliquis last night, IV heparin was stopped. She is feeling much better, her pleuritic chest pain has resolved. Patient will be discharged on Eliquis Follow-up with family physician (4) Migraine: - Hx of such, controlled (5) GERD (gastroesophageal reflux disease): -Patient is not on a PPI or H2 lauren (6) Chronic back pain: -History of such uses Tylenol, ibuprofen as needed (7) Anxiety: -History of such, well maintained on Paxil 20 mg daily, continue DVt ppx: - scds, iv heparin -> Eliquis CODE: Full code Dispo: Plan to discharge home today Total Time Total Time Spent Total Time Spent (In Minutes): 35 Total Time Includes: Examination of the Patient, Discharge Planning, Medication Reconciliation and Communication With Other Providers Discharge Plan Discharge Items Patient Disposition: Home - Self-Care Reason For Visit: CHEST PAIN Discharge Diagnosis: Acute right lower lobe pulmonary embolism Activity: Per Instructions section Non-emergency contact: Primary Care Provider Call non-emergency contact if: you have any medication questions and your symptoms worsen Follow-up/Referrals: Jarek Madrigal DO [Primary Care Provider] - Diet: Regular Addtl Attending Provider Instructions: Follow-up with your primary care doctor within 1 week. Take Eliquis as prescribed, 10 mg twice a day for 1 week, then take 5 mg twice a day. You will need to be on this medication for several months, your family physician will prescribe you the rest of the treatment. For pain you can take Tylenol 1000 mg 3 times a day. The max daily dose is 3000 mg. You can also use lidocaine patches, prescription was sent to your pharmacy. However you can also obtain lidocaine patches [id number]. Pending Studies at Discharge: No Stand-Alone Forms: My [facility], Smoking Cessation Medications and DC Order Prescriptions: New Eliquis 5 mg tablet 5 mg PO BID Qty: 60 RF: 0 lidocaine 5 % Adhesive Patch,Medicated 1 patch transdermal QAM Qty: 15 RF: 0 Continued multivitamin Tablet 1 tab PO HS RF: 0 paroxetine HCl [Paxil] 20 mg Tablet 20 mg PO PM RF: 0 magnesium 30 mg Tablet 30 mg PO HS RF: 0 B Complex Plus Vitamin C [id number] mg Capsule 1 cap PO HS RF: 0 ondansetron HCl 4 mg tablet 4 mg PO Q6 PRN (Reason: Nausea) RF: 0 meclizine 12.5 mg tablet 12.5 mg PO UD PRN (Reason: Dizziness) RF: 0 omeprazole 40 mg capsule,delayed release(DR/EC) 40 mg PO BID PRN (Reason: gastric upset) RF: 0 Discharge Orders: Discharge Order (Routine); Ordered 10/17/20 Ordered By: Chivo Rodriguez Admission Data Admit Date/Time: 10/14/20 09:18 Attending Provider: Chivo Rodriguez Admit Provider: John Causey Primary Care Provider: Jarek Madrigal Other Providers: John Causey ; Prakash Cazares ; Comfort Whitley
== END 2020-10-17 10:56 | disposition home or self-care (01) | DRG 176 ==
LOC: 2S 11:33 → ED 11:33 → SUATTDRO 14:31 → 2S 16:53